=== PATIENT | male | born 1980 | race Caucasian/White ===

== ENCOUNTER 2025-01-11 13:27 | Observation (INO) | payer OTHER ==
--- OUTSIDE RECORDS SUMMARY | 2025-01-11 13:30 | XMS REPORT | Continuity of Care Document ---
Author Name Unknown Address [address] [facility] [address] [place] [address] [facility] Address [address] [facility] [address] [place] [address] Care Team Providers Care Dextrine Mixer Name Role Phone PCP, PATIENT DOES NOT HAVE A Primary Care Physic meme Unavailable YAEL SANTAMARIA Attending Clinician Unavail able YAEL SANTAMARIA Attending Clinician Unavail able YAEL SANTAMARIA Admitting Clinician Unavail able Payers Payer Name Policy Type Policy Number Effective Date Expirati on Date Source [place] [id number] 00:00:00 Allergies, Adverse Reactions, Alerts Allergy Name Allergy Type Status Severity Reaction(s) Onset Date Inactive Date Treating Clinician Comments Source NO KNOWN ALLERGIE S Drug Class Active [facility] Encounters Start Date/Time End Date/Time Encounter Type Admission Type Attending Clinicians Care Facility Care Department Encounter ID Source 2024-12-19 18:44:00 2024-12-20 01:31:00 Emergency X YAEL SANTAMARIA [facility] ERT [id number] [facility]
[2025-01-11] MEDS ORDERED: LORazepam 2 MG/ML VIAL ONE (13:51)
[2025-01-11] MEDS ORDERED: NA CHLORIDE 0.9% 1,000 ML ONE ×3 (13:51→21:21)
[2025-01-11] MEDS ORDERED: NA CHLORIDE 0.9% 50 ML ONE ×2 (13:51→17:56)
[2025-01-11] MEDS ORDERED: METOCLOPRAMIDE 10 MG/2mL INJ ONE (13:51)
[2025-01-11 14:03] LABS: Absolute Basophils 0.1 K/uL (0-0.5); Absolute Monocytes 0.3 K/uL (0.1-1.3); Absolute Neutrophil 11.6 K/uL (1.8-8.0); Basophils % 0.5 % (0-1.3); Eosinophils % 0.1 % (0-4.4); Hematocrit 47.5 % (39.6-49.0); Hemoglobin 16.7 g/dL (13.6-17.9); MCH 30.5 pg (27.0-35.0); MCHC 35.2 g/dL (32.0-36.0); MCV 86.7 fL (80-100); MPV 9.1 fL (7.6-11.3); Monocytes % 2.5 % (3.3-12.3); Neutrophils % 88.9 % (41.7-73.7); Nucleated Red Blood Cells % 0.1 % (0-0); Platelets 286 thou/uL (152-406); RBC Red Blood Cell Count 5.47 M/uL (4.33-5.43); Red Cell Distribution Width 12.9 % (12.1-15.2)
[2025-01-11] MEDS ORDERED: LIDOCAINE VISCOUS 2% 10ML ORAL SOLN ONE (14:03)
[2025-01-11] MEDS ORDERED: PANTOPRAZOLE 40 MG INJ ONE (14:03)
[2025-01-11] MEDS ORDERED: MAGNES/ALUMIN/SIMET 30ML UCUP ONE (14:03)
[2025-01-11 14:08] LABS: PT Prothrombin Time 14.8 SECONDS (10-13.0); Protime INR 1.32
[2025-01-11 14:55] LABS: Albumin 3.9 g/dL (3.4-5.0); Albumin/Globulin Ratio 0.7 (1.1-1.8); Anion Gap 18.3 mEq/L (5.0-15.0); Bilirubin Direct 0.2 mg/dL (0-0.2); Bilirubin Indirect, Calculated 0.4 mg/dL (0.2-0.8); Bilirubin Total 0.6 mg/dL (0.2-1.0); Globulin 5.4 g/dL (2.3-3.5); Magnesium 1.2 mg/dL (1.6-2.4); Potassium 4.3 mEq/L (3.5-5.1); Protein, Total 9.3 g/dL (6.4-8.2); Troponin High Sensitivity 11.6 pg/mL (<58.9)
--- NOTE | 2025-01-11 15:23 | RAD REPORT ---
EXAMINATION: ONE VIEW CHEST XR CLINICAL INDICATION: Male, 44 years old.,vomiting TECHNIQUE: Frontal chest projection is submitted. Examination is limited by patient positioning and t echnique. COMPARISON: No prior exam. FINDINGS: The lungs are grossly clear although suboptimal inspiratory effort somewhat limits evaluation. No pn eumothorax or sizable effusion. The heart is normal in size. Mediastinal contours are unremarkable. IMPRESSION: No acute intrathoracic abnormalities.
[2025-01-11] MEDS ORDERED: Magnesium Sulfate 2gm IVPB 2 G/50 ML BAG IV ONE (16:15)
--- NOTE | 2025-01-11 17:14 | RAD REPORT ---
EXAMINATION: CT Abdomen Pelvis Wo Contrast CLINICAL INDICATION: Male, 44 years old. Abd pain;Nausea / vomiting TECHNIQUE: CT abdomen and pelvis was performed, without IV contrast, as per department protocol. Axia l, sagittal and coronal reconstructions were obtained. One or more of the following dose reduction techniques were used: Automated exposure control, adjustment of the mA and kV according to the patien t size, and iterative reconstruction. Unless otherwise specified, incidental findings do not require dedicated imaging follow-up. COMPARISON: No prior exam. FINDINGS: The lack of intravenous contrast limits the sensitivity of this exam for evaluation of solid visceral organs, vascular structures, and retroperitoneum. LOWER CHEST: Patchy bilateral airspace opacities, largest is pleural-based in the left upper lobe jordan suring 4.5 cm, and largest on the right is present in the right middle lobe along the minor fissure measuring 3.9 cm. Most of the smaller opacities are subsolid in appearance. LIVER: Normal in size and contour. Diffuse parenchymal hypoattenuation suggesting steatosis. No focal lesion. BILIARY SYSTEM: No suspicious post abnormalities. SPLEEN: Normal size. No focal lesion. PANCREAS: No mass, ductal dilation, or tonio-pancreatic fluid. ADRENALS: Normal; no mass. KIDNEYS AND URETERS: Normal size and contour. No hydronephrosis. Nonobstructing calculi largest measu ring 6 mm at the left superior pole and 5 mm at the right lower pole URINARY BLADDER: Normal contour. GASTROINTESTINAL TRACT: No evidence of bowel obstruction, significant free fluid, free air or abscess . APPENDIX: Normal appendix. LYMPH NODES: No lymphadenopathy. MUSCULOSKELETAL: No acute or suspicious osseous abnormality. ADDITIONAL FINDINGS: None. IMPRESSION: Bilateral airspace opacities as above, could reflect multifocal pneumonia. Short-term CT chest evalua tion in one month or following resolution of any acute findings is recommended to ensure absence of underlying suspicious nodules. Bilateral nonobstructing renal calculi, largest measuring 6 mm on the left. Diffuse hepatic steatosis.
[2025-01-11 17:34] LABS: Platelet Estimate ADEQ; White Blood Cell Scan OK (OK)
[2025-01-11 17:35] LABS: Anisocytosis 1+; Blood Morphology Comment NOTED (NOT SEEN); Poikilocytosis 1+
[2025-01-11] MEDS ORDERED: NA CHLORIDE 0.9% 250 ML ONE (17:56)
[2025-01-11] MEDS ORDERED: HYDROMORPHONE HCL 0.5 MG/0.5 ML INJ ONE (17:56)
[2025-01-11] MEDS ORDERED: AZITHROMYCIN 500 MG INJ IVPB ONE (17:56)
[2025-01-11] MEDS ORDERED: PROMETHAZINE INJ 25 MG/ML AMP ONE (17:56)
[2025-01-11] MEDS ORDERED: CEFTRIAXONE 1000 MG/VIAL ONE (17:56)
[2025-01-11 18:02] LABS: Specific Gravity 1.026 (1.005-1.030); Sqamous Epithelial None Seen /HPF (None Seen); Urine Bacteria <20 /HPF (<20); Urine Bilirubin NEGATIVE (Negative); Urine Blood Negative (Negative); Urine Clarity Clear (Clear); Urine Color Yellow (Yellow); Urine Culture Reflex Order NOT NEEDED; Urine Glucose NEGATIVE (Negative); Urine Ketones 2+ (Negative); Urine Micro Reflex YN NO BILL MICROSCOPIC; Urine Mucus Slight /HPF (None Seen); Urine Nitrite NEGATIVE (Negative); Urine Protein 1+ (Negative); Urine RBC <5 /HPF (None Seen); Urine Urobilinogen Normal (Normal); Urine WBC <5 /HPF (<5); Urine pH 7.5 (5.0-7.0)
[2025-01-11 18:07] LABS: Barbiturates NEGATIVE (NEGATIVE); Benzodiazepines NEGATIVE (NEGATIVE); Cocaine NEGATIVE (NEGATIVE); METHAMPHETAM NEGATIVE (NEGATIVE); Methadone NEGATIVE (NEGATIVE); Opiates POSITIVE (NEGATIVE); Phencyclidine NEGATIVE (NEGATIVE); THC Cannibis POSITIVE (NEGATIVE)
--- NOTE | 2025-01-11 18:28 | EDPHYS ---
Physician Documentation [facility] Name: Kaden Turcios Age: 44 yrs Sex: Male : 1980 Arrival Date: 01/11/2025 Time: 13:27 Bed 2 Private MD: ED Physician Beni Patrick HPI: 01/11 13:45 This 44 yrs old Male presents to ER via Ambulatory with complaints of Vomiting. cp 13:45 The patient presents to the emergency department with nausea, with "dry heaves", cp vomiting, that is continuous, abdominal pain, of the mid abdomen, loose stools. Onset: The symptoms/episode began/occurred this morning. Possible causes: recent change in pain pump medication from Dilaudid to Fentanyl. Associated signs and symptoms: Pertinent positives: vomiting blood, Pertinent negatives: constipation, fever. Historical: - Allergies: 13:37 Morphine; iw - PMHx: 13:38 Diabetes mellitus; Chronic back pain; iw 13:39 hernia; iw - PSHx: 13:39 back; knee; iw - Immunization history:: Adult Immunizations not up to date. - Infectious Disease History:: Denies. - Social history:: Smoking status: Patient denies any tobacco usage or history of. Patient/guardian denies using alcohol, IV drugs. ROS: 13:50 Constitutional: Positive for poor PO intake, Negative for body aches, chills, fever, cp 13:50 Cardiovascular: Negative for chest pain, palpitations, cp 13:50 Respiratory: Negative for cough, shortness of breath, wheezing, 13:50 Abdomen/GI: Positive for abdominal pain, nausea and vomiting, loose stools, 13:50 Eyes: Negative for injury, pain, redness, and discharge, cp 13:50 Back: Negative for pain at rest, pain with movement, 13:50 Neuro: Negative for altered mental status, headache, 13:50 All other systems are negative, cp Exam: 13:55 Constitutional: The patient appears in no acute distress, alert, awake, cp non-diaphoretic, non-toxic, well developed, well nourished, uncomfortable, 13:55 Head/Face: Normocephalic, atraumatic. cp 13:55 Eyes: Periorbital structures: appear normal, Conjunctiva: normal, no exudate, no injection, Sclera: no appreciated abnormality, Lids and lashes: appear normal, bilaterally, 13:55 ENT: External ear(s): are unremarkable, Nose: is normal, Mouth: Lips: moist, Oral mucosa: moist, Posterior pharynx: Airway: no evidence of obstruction, patent, 13:55 Chest/axilla: Inspection: normal, 13:55 Cardiovascular: Rate: tachycardic, Rhythm: regular, 13:55 Respiratory: the patient does not display signs of respiratory distress, Respirations: labored breathing, is not present, intercostal retractions, are absent, Breath sounds: are clear throughout, no decreased breath sounds, no stridor, no wheezing, 13:55 Abdomen/GI: Inspection: Bowel sounds: active, all quadrants, Palpation: soft, in all quadrants, severe abdominal tenderness, in all quadrants, Hernia: noted in the paraumbilical area, incarceration, is not appreciated, tenderness, that is severe, 13:55 Back: CVA tenderness, is absent, 13:55 Neuro: Orientation: to person, place \\T\\ time. Mentation: is normal, 14:27 ECG was reviewed by the Attending Physician. Vital Signs: 13:39 BP 135 / 108; Pulse 140; Resp 22; Pulse Ox 100% on R/A; Weight 100.7 kg; Height 6 ft. 0 iw in. ; Pain 8/10; 14:32 BP 95 / 57; Pulse 96; Resp 18; Pulse Ox 97% on R/A; ph 15:22 BP 110 / 69; Pulse 88; Resp 17; Pulse Ox 98% ; cm10 17:00 BP 111 / 72; Pulse 93; Resp 18; Pulse Ox 95% on R/A; ph 19:02 BP 108 / 64; Pulse 94; Resp 15; Pulse Ox 94% on R/A; cm10 19:30 BP 109 / 61; Pulse 104; Resp 15; Pulse Ox 94% on R/A; cm10 20:51 BP 130 / 74; Pulse 104; Resp 18; Temp 99.4(O); Pulse Ox 98% ; cm10 13:39 Body Mass Index 30.11 (100.70 kg, 182.88 cm) iw 13:39 Pain Scale: Adult iw MDM: 13:38 Medical Screening Exam initiated cp 18:15 Data reviewed: vital signs, nurses notes, lab test result(s), EKG, radiologic studies, cp CT scan, plain films, and as a result, I will admit patient. 18:15 Differential diagnosis: gastritis, pancreatitis, viral gastroenteritis, cp gastroenteritis, dehydration, incarcerated hernia. Management of patient was discussed with the following: Hospitalist: SR Noonan will admit after discussion. Independent interpretation of the following test(s) in the Emergency Department EKG: See my EKG interpretation above. Care significantly affected by the following chronic conditions: Diabetes. Counseling: I had a detailed discussion with the patient and/or guardian regarding the historical points, exam findings, and any diagnostic results supporting the discharge/admit diagnosis, lab results, radiology results. Response to treatment: the patient's symptoms have mildly improved after treatment. 01/11 13:42 Order name: Basic Metabolic Panel; Complete Time: 14:57 cp 01/11 14:57 Interpretation: Normal except: ANION GAP 18.3; GLUC 230; CRE 1.73; GFR 49; CA 10.2. cp 01/11 13:42 Order name: CBC with Diff; Complete Time: 17:39 cp 01/11 14:22 Interpretation: Normal except: WBC 13.00; RBC 5.47; MARYLU% 88.9; LYM% 8.0; MN% 2.5; NEUT cp A 11.6. 01/11 13:42 Order name: LFT's; Complete Time: 14:57 cp 01/11 14:58 Interpretation: Normal except: AST 41; ALK 160; TP 9.3; GLOB 5.4; A/G 0.7. cp 01/11 13:42 Order name: Magnesium; Complete Time: 14:57 cp 01/11 14:58 Interpretation: Abnormal: MG 1.2. cp 01/11 13:42 Order name: PT-INR; Complete Time: 14:22 cp 01/11 13:42 Order name: Troponin HS; Complete Time: 14:57 cp 01/11 13:42 Order name: Lipase; Complete Time: 14:57 cp 01/11 13:42 Order name: UDS; Complete Time: 18:08 cp 01/11 13:42 Order name: Urinalysis W/Microscopic; Complete Time: 18:08 cp 01/11 17:35 Order name: CBC Smear Scan; Complete Time: 17:39 EDMS 01/11 19:02 Order name: Magnesium EDMS 01/11 19:02 Order name: Phosphorus EDMS 01/11 19:02 Order name: Basic Metabolic Panel EDMS 01/11 19:02 Order name: Basic Metabolic Panel EDMS 01/11 19:02 Order name: CBC with Automated Diff EDMS 01/11 19:02 Order name: CBC with Automated Diff EDMS 01/11 19:02 Order name: Lipid Profile EDMS 01/11 19:02 Order name: Lipid Profile EDMS 01/11 13:42 Order name: XRAY Chest (1 view); Complete Time: 15:40 cp 01/11 14:59 Order name: CT Abd/Pelvis - Without Contrast; Complete Time: 17:16 cp 01/11 17:17 Interpretation: Report reviewed. cp 01/11 13:42 Order name: Cardiac monitoring; Complete Time: 14:31 cp 01/11 13:42 Order name: EKG - Nurse/Tech; Complete Time: 14:26 cp 01/11 13:42 Order name: IV Saline Lock; Complete Time: 14:31 cp 01/11 13:42 Order name: Labs collected and sent; Complete Time: 14:31 cp 01/11 13:42 Order name: O2 Per Protocol; Complete Time: 14:31 cp 01/11 13:42 Order name: O2 Sat Monitoring; Complete Time: 14:31 cp EC:27 Rate is 97 beats/min. Rhythm is regular. PA interval is normal. QRS interval is normal. cp QT interval is normal. T waves are Inverted in leads aVL, aVR. Interpreted by me. Reviewed by me. Administered Medications: 13:59 Drug: NS 0.9% IV 1000 ml IV at 1000 ml once; to be given as a bolus over 60 minutes ph Route: IV; Rate: 1000 ml; Site: right forearm; 14:59 Follow up: Response: No adverse reaction; IV Status: Completed infusion; IV Intake: cm10 1000ml 14:00 Drug: metoCLOPramide IVP 10 mg IVP once; over 1 to 2 minutes Route: IVP; Site: right forearm; 15:19 Follow up: Response: No adverse reaction cm10 14:00 Drug: Ativan IVP 1 mg IVP once Route: IVP; Site: right forearm; 15:20 Follow up: Response: No adverse reaction cm10 14:00 Drug: Pantoprazole IVP 40 mg IVP once Route: IVP; Site: right forearm; ph 15:20 Follow up: Response: No adverse reaction cm10 14:22 Drug: GI Cocktail without - (Maalox PO 30 ml, Lidocaine Mucous Membrane 2 % 15 ph ml) PO once Route: PO; 15:20 Follow up: Response: No adverse reaction cm10 15:20 Drug: NS 0.9% IV 1000 ml IV at 1000 ml once; to be given as a bolus over 60 minutes cm10 Route: IV; Rate: 1000 ml; Site: right forearm; 17:00 Follow up: Response: No adverse reaction; IV Status: Completed infusion; IV Intake: ph 1000ml 16:59 Drug: Magnesium Sulfate IVPB 2 grams IVPB once over 1 hrs Route: IVPB; Infused Over: 1 ph hrs; Site: right forearm; 17:41 Follow up: Response: No adverse reaction; IV Status: Completed infusion; IV Intake: cm10 100ml 18:12 Drug: HYDROmorphone IVP 0.5 mg IVP once Route: IVP; Site: right forearm; cm10 19:03 Follow up: Response: No adverse reaction cm10 18:12 Drug: Promethazine IM 12.5 mg IM once Route: IM; Site: right ventrogluteal; cm10 19:03 Follow up: Response: No adverse reaction cm10 18:12 Drug: Rocephin IV 1 grams IV at calculated rate once; Given slow IV push per pharmacy cm10 instructions Route: IV; Rate: calculated rate; Site: right forearm; 19:03 Follow up: Response: No adverse reaction; IV Status: Completed infusion; IV Intake: [id number] 19:10 Drug: Zithromax IVPB 500 mg IVPB once over 1 hrs; mix in 250 mL NS Route: IVPB; Infused cm10 Over: 1 hrs; Site: right forearm; 20:10 Follow up: Response: No adverse reaction; IV Status: Completed infusion; IV Intake: cm10 250ml Disposition Summary: 01/11/25 18:28 Hospitalization Ordered Notes: Hospitalization Status: Observation cp Provider: Prince andreina Noonan Location: Telemetry/MedSurg (observation) cp Condition: Stable cp Problem: new cp Symptoms: have improved cp Bed/Room Type: Standard cp Room Assignment: 429(01/11/25 20:47) rv1 Diagnosis - Nausea with vomiting, unspecified cp - Hypomagnesemia cp - Pneumonia in diseases classified elsewhere cp Forms: - Medication Reconciliation Form cp - SBAR form cp - Leadership Thank You Letter cp Signatures: Dispatcher [employer] EDLinda Macario, RN RN Jennifer Fishman RN RN Beni Scott PA PA cp Maxine Aparicio rv1 Orin Boston RN RN cm10 Corrections: (The following items were deleted from the chart) 13:42 13:42 BASIC METABOLIC PANEL+C.LAB.BRZ ordered. EDMS EDMS 13:42 13:42 CBC+H.LAB.BRZ ordered. EDMS EDMS 13:42 13:42 HEPATIC FUNCTION+C.LAB.BRZ ordered. EDMS EDMS 13:42 13:42 MAGNESIUM+C.LAB.BRZ ordered. EDMS EDMS 13:42 13:42 PROTIME (+INR)+COAG.LAB.BRZ ordered. EDMS EDMS 13:42 13:42 Troponin High Sensitivity+C.LAB.BRZ ordered. EDMS EDMS 13:42 13:42 LIPASE+C.LAB.BRZ ordered. EDMS EDMS 13:42 13:42 URINE DRUG SCREEN+UC.LAB.BRZ ordered. EDMS EDMS 13:42 13:42 Urinalysis W/Microscopic+U.LAB.BRZ ordered. EDMS EDMS 13:42 13:42 Chest Single View+RAD.RAD.BRZ ordered. EDMS EDMS 14:23 14:23 Abdomen Pelvis W Con+CT.RAD.BRZ ordered. EDMS EDMS 15:00 15:00 Abdomen Pelvis Wo Con+CT.RAD.BRZ ordered. EDMS EDMS 20:47 18:28 cp rv1
--- NOTE | 2025-01-11 18:28 | ER ---
Nurse's Notes [facility] Name: Kaden Turcios Age: 44 yrs Sex: Male : 1980 Arrival Date: 01/11/2025 Time: 13:27 Bed 2 Private MD: Diagnosis: Nausea with vomiting, unspecified;Hypomagnesemia;Pneumonia in diseases classified elsewhere Presentation: 01/11 13:36 Chief complaint: Patient states: vomiting since 0130 in the morning, felt bad last iw night . burning pain , has a fentanyl in pain pump , they changed him from Dilaudid to fentanyl yesterday , he has chronic back pain. Coronavirus screen: At this time, the client does not indicate any symptoms associated with coronavirus-19. Ebola Screen: No symptoms or risks identified at this time. Initial Sepsis Screen: Does the patient meet any 2 criteria? HR > 90 bpm. Does the patient have a suspected source of infection? No. Patient's initial sepsis screen is negative. Risk Assessment: Do you want to hurt yourself or someone else?. Onset of symptoms was January 11, 2025. 13:36 Method Of Arrival: Ambulatory iw 13:36 Acuity: JOHN 3 iw 13:39 Acuity: JOHN 2 iw Historical: - Allergies: 13:37 Morphine; iw - PMHx: 13:38 Diabetes mellitus; Chronic back pain; iw 13:39 hernia; iw - PSHx: 13:39 back; knee; iw - Immunization history:: Adult Immunizations not up to date. - Infectious Disease History:: Denies. - Social history:: Smoking status: Patient denies any tobacco usage or history of. Patient/guardian denies using alcohol, IV drugs. Screenin:24 [facility] ED Fall Risk Assessment (Adult) History of falling in the last 3 months, cm10 including since admission No falls in past 3 months (0 pts) Confusion or Disorientation No (0 pts) Intoxicated or Sedated No (0 pts) Impaired Gait No (0 pts) Mobility Assist Device Used No (0 pt) Altered Elimination No (0 pt) Score/Fall Risk Level 0 - 2 = Low Risk Oriented to surroundings, Maintained a safe environment, Hourly rounding (assess needs \T\ fall precautionary measures) done. Abuse screen: Denies threats or abuse. Denies injuries from another. Nutritional screening: No deficits noted. Tuberculosis screening: No symptoms or risk factors identified. Assessment: 13:50 General: Appears in no apparent distress. uncomfortable, Behavior is calm, cooperative. cm10 Pain: Complains of pain in abdomen. Neuro: No deficits noted. Level of Consciousness is awake, alert, obeys commands, Oriented to person, place, time, situation, Appropriate for age. Respiratory: No deficits noted. Airway is patent Respiratory effort is even, unlabored, Respiratory pattern is regular, symmetrical. GI: Abdomen is flat, Reports nausea, vomiting. 15:24 Reassessment: Patient appears in no apparent distress at this time. Patient and/or cm10 family updated on plan of care and expected duration. Pain level reassessed. Patient is alert, oriented x 3, equal unlabored respirations, skin warm/dry/pink. Patient states feeling better. Patient states symptoms have improved. 16:59 Reassessment: Patient appears in no apparent distress at this time. Patient and/or ph family updated on plan of care and expected duration. Pain level reassessed. Pt drowsy but awakens easily Patient states feeling better. Patient states symptoms have improved. 17:25 Reassessment: PT COMPLAINING OF ABDOMINAL PAIN. PROVIDER MADE AWARE. cm10 19:02 Reassessment: Patient appears in no apparent distress at this time. Patient and/or cm10 family updated on plan of care and expected duration. Pain level reassessed. Patient is alert, oriented x 3, equal unlabored respirations, skin warm/dry/pink. 20:53 Reassessment: Patient appears in no apparent distress at this time. Patient and/or cm10 family updated on plan of care and expected duration. Pain level reassessed. Patient is alert, oriented x 3, equal unlabored respirations, skin warm/dry/pink. Vital Signs: 13:39 BP 135 / 108; Pulse 140; Resp 22; Pulse Ox 100% on R/A; Weight 100.7 kg; Height 6 ft. 0 iw in. ; Pain 8/10; 14:32 BP 95 / 57; Pulse 96; Resp 18; Pulse Ox 97% on R/A; ph 15:22 BP 110 / 69; Pulse 88; Resp 17; Pulse Ox 98% ; cm10 17:00 BP 111 / 72; Pulse 93; Resp 18; Pulse Ox 95% on R/A; ph 19:02 BP 108 / 64; Pulse 94; Resp 15; Pulse Ox 94% on R/A; cm10 19:30 BP 109 / 61; Pulse 104; Resp 15; Pulse Ox 94% on R/A; cm10 20:51 BP 130 / 74; Pulse 104; Resp 18; Temp 99.4(O); Pulse Ox 98% ; cm10 13:39 Body Mass Index 30.11 (100.70 kg, 182.88 cm) iw 13:39 Pain Scale: Adult iw Vitals: 14:32 Cardiac Rhythm Assessment Sinus rhythm. ph ED Course: 13:30 Patient arrived in ED. al6 13:31 Beni Villar PA is PHCP. cp 13:31 Beni Patrick MD is Attending Physician. cp 13:37 Triage completed. iw 13:44 Orin Boston, RN is Primary Nurse. cm10 13:44 Arm band placed on Patient placed in an exam room, on a stretcher. ll1 13:56 Patient has correct armband on for positive identification. Bed in low position. Call cm10 light in reach. Side rails up X2. Client placed on continuous cardiac and pulse oximetry monitoring. NIBP monitoring applied. phototypesetting equipment monitor on. 13:56 Initial lab(s) drawn, by me, sent to lab. Inserted saline lock: 18 gauge in right cm10 forearm, using aseptic technique. Blood collected. Flushed with 10 mL NS. 14:06 XRAY Chest (1 view) In Process Unspecified. EDMS 14:26 EKG done, by ED staff, reviewed by Beni ANDREWS. kb4 15:20 CT Abd/Pelvis - Without Contrast In Process Unspecified. EDMS 18:27 Prince Noonan MD is Hospitalizing Provider. cp 21:02 Report faxed at 2057, confirmed received at 2058 by jenny. cm10 21:02 Provided Education on: Need for admit. cm10 21:02 No provider procedures requiring assistance completed. Patient admitted, IV remains in cm10 place. Administered Medications: 13:59 Drug: NS 0.9% IV 1000 ml IV at 1000 ml once; to be given as a bolus over 60 minutes ph Route: IV; Rate: 1000 ml; Site: right forearm; 14:59 Follow up: Response: No adverse reaction; IV Status: Completed infusion; IV Intake: cm10 1000ml 14:00 Drug: metoCLOPramide IVP 10 mg IVP once; over 1 to 2 minutes Route: IVP; Site: right ph forearm; 15:19 Follow up: Response: No adverse reaction cm10 14:00 Drug: Ativan IVP 1 mg IVP once Route: IVP; Site: right forearm; ph 15:20 Follow up: Response: No adverse reaction cm10 14:00 Drug: Pantoprazole IVP 40 mg IVP once Route: IVP; Site: right forearm; ph 15:20 Follow up: Response: No adverse reaction cm10 14:22 Drug: GI Cocktail without - (Maalox PO 30 ml, Lidocaine Mucous Membrane 2 % 15 ph ml) PO once Route: PO; 15:20 Follow up: Response: No adverse reaction cm10 15:20 Drug: NS 0.9% IV 1000 ml IV at 1000 ml once; to be given as a bolus over 60 minutes cm10 Route: IV; Rate: 1000 ml; Site: right forearm; 17:00 Follow up: Response: No adverse reaction; IV Status: Completed infusion; IV Intake: ph 1000ml 16:59 Drug: Magnesium Sulfate IVPB 2 grams IVPB once over 1 hrs Route: IVPB; Infused Over: 1 ph hrs; Site: right forearm; 17:41 Follow up: Response: No adverse reaction; IV Status: Completed infusion; IV Intake: cm10 100ml 18:12 Drug: HYDROmorphone IVP 0.5 mg IVP once Route: IVP; Site: right forearm; cm10 19:03 Follow up: Response: No adverse reaction cm10 18:12 Drug: Promethazine IM 12.5 mg IM once Route: IM; Site: right ventrogluteal; cm10 19:03 Follow up: Response: No adverse reaction cm10 18:12 Drug: Rocephin IV 1 grams IV at calculated rate once; Given slow IV push per pharmacy cm10 instructions Route: IV; Rate: calculated rate; Site: right forearm; 19:03 Follow up: Response: No adverse reaction; IV Status: Completed infusion; IV Intake: [id number] 19:10 Drug: Zithromax IVPB 500 mg IVPB once over 1 hrs; mix in 250 mL NS Route: IVPB; Infused cm10 Over: 1 hrs; Site: right forearm; 20:10 Follow up: Response: No adverse reaction; IV Status: Completed infusion; IV Intake: cm10 250ml Medication: 21:03 VIS not applicable for this client. cm10 Intake: 14:59 IV: 1000ml; Total: 1000ml. cm10 17:00 IV: 1000ml; Total: 2000ml. ph 17:41 IV: 100ml; Total: 2100ml. cm10 19:03 IV: 50ml; Total: 2150ml. cm10 20:10 IV: 250ml; Total: 2400ml. cm10 Outcome: 18:28 Decision to Hospitalize by Provider. cp 21:02 Admitted to Tele accompanied by tech, via wheelchair, room 429, cm10 21:02 Condition: good 21:02 Instructed on the need for admit, 22:04 Patient left the ED. cm10 Signatures: Dispatcher [employer] EDMS Linda Abbott RN RN iw Jennifer Mendoza RN RN ph Beni Villar PA PA cp Marcus Madrid RN RN ll1 Orin Boston RN RN cm10 Clara Hernandez al6 Yessi Blake kb4 Corrections: (The following items were deleted from the chart) 13:38 13:36 Chief complaint: Patient states: vomiting since 0130 in the morning, felt bad iw last night . burning pain iw 13:40 13:39 BP 135 / 108; Pulse 140bpm; Resp 22bpm; Pulse Ox 100% RA; iw iw
[2025-01-11] MEDS ORDERED: ALBUTEROL 2.5 MG/3 ML NEB SOL NEB PRN (18:57)
[2025-01-11] MEDS ORDERED: IPRATROPIUM BROM 0.5MG/2.5ML NEB PRN (18:57)
[2025-01-11] MEDS ORDERED: ACETAMINOPHEN 500 MG TAB PO PRN (18:57)
[2025-01-11] MEDS ORDERED: ONDANSETRON 4 MG/2 ML VIAL IV PRN (18:57)
[2025-01-11] MEDS ORDERED: SODIUM CHLORIDE 0.9% 10ML INJ IV PRN (19:04)
--- NOTE | 2025-01-11 19:05 | P.HP ---
Certification for Inpatient Patient admitted to: Observation With expected LOS: <2 Midnights Practitioner: I am a practitioner with admitting privileges, knowledge of patient current condition, hospital course, and medical plan of care. Services: Services provided to patient in accordance with Admission requirements found in Title 42 Section 412.3 of the Code of Federal Regulations Patient History Date of Service: 01/11/25 Reason for admission: INTRACTABLE N/V, asp PNA History of Present Illness: Patient is a 44-year-old male with a past medical history of chronic pain, currently on fentanyl pump. He presented to the ER complaining of intractable nausea and vomiting. Other associated symptoms include abdominal pain. He has a periumbilical hernia. Workup in the ER revealed WBC of 13,000. CT abdomen and pelvis did not reveal any obstruction but captured multifocal opacities concerning for pneumonia. He also has DARCIE with creatinine 1.73. Baseline unknown. Patient is being admitted for volume repletion and symptomatic control. He has also been started on antibiotics. Physical Examination - Physical Exam General: Acute distress HEENT: Atraumatic, Normocephalic Cardiovascular: No edema, Normal pulses, Regular rate/rhythm, Normal S1 S2 Gastrointestinal: Soft and benign, Other (Hernia noted) Neurological: Normal speech - Studies Laboratory Data (last 24 hrs) 01/11/25 01/11/25 01/11/25 13:55 13:55 13:55 WBC 13.00 H Hgb 16.7 Hct 47.5 Plt Count 286 PT 14.8 H INR 1.32 Sodium 137 Potassium 4.3 BUN 14 Creatinine 1.73 H Glucose 230 H Magnesium 1.2 L Total Bilirubin 0.6 AST 41 H ALT 54 Alkaline Phosphatase 160 H Lipase 7 L Assessment and Plan - Problems (Diagnosis) (1) Intractable nausea and vomiting Current Visit: Yes Status: Acute (2) Multifocal pneumonia Current Visit: Yes Status: Acute (3) Chronic pain Current Visit: Yes Status: Acute - Plan Assessment This is a 44-year-old male with chronic pain currently on a fentanyl pain pump. He is being admitted after he presented with intractable nausea and vomiting. Patient has evidence of DARCIE with a creatinine of 1.73. Additional imaging including a CT abdomen and pelvis which revealed multifocal opacities. Patient has a WBC of 13,000 Tractable nausea and vomiting Multifocal pneumonia, possibly aspiration events as well Chronic pain Plan: Will admit under observation with telemetry Volume repletion with normal saline If creatinine improves tomorrow Obtain a CT chest with contrast for better understanding of multifocal opacities In the meantime, antibiotic coverage Will also go ahead and consult pulmonary for the multifocal opacities Symptomatic control of nausea and vomiting: Zofran, PPI and GI cocktail if needed Patient is full code - Advance Directives Does patient have a Living Will: No Does patient have a Durable POA for Healthcare: No
[2025-01-11] MEDS ORDERED: VANCOMYCIN 1.25 GM in NA CHLORIDE 0.9% 250 ML IVPB SCH (21:00)
[2025-01-11] MEDS: HYDROMORPHONE HCL 1 MG/ML INJ IV ONE (21:18)
[2025-01-11] MEDS ORDERED: HYDROMORPHONE HCL 1 MG/ML INJ ONE (21:21)
[2025-01-11] MEDS: NA CHLORIDE 0.9% 1,000 ML IV SCH (21:29)
[2025-01-11] MEDS: PANTOPRAZOLE 40 MG INJ IVP SCH (22:37)
[2025-01-11] MEDS: Meropenem 1,000 MG in NA CHLORIDE 0.9% 100 ML IV SCH (22:37)
[2025-01-11 23:14] VITALS: BMI 30.5
[2025-01-11] MEDS: VANCOMYCIN 2.5 GM in NA CHLORIDE 0.9% 500 ML IVPB ONE (23:58)
[2025-01-11] MEDS: AMITRIPTYLINE 50 MG TAB PO SCH (23:59)
[2025-01-11] MEDS: HEPARIN 5000 UNIT/ML 1 ML VIAL SQ SCH (23:59)
[2025-01-11] MEDS: TIZANIDINE 4 MG TABLET PO SCH (23:59)
[2025-01-12] MEDS: CLONIDINE HCL 0.3 MG TAB PO SCH ×2 (02:30→09:50)
[2025-01-12] MEDS: HYDROMORPHONE HCL 1 MG/ML INJ IV PRN (03:11)
[2025-01-12 07:45] LABS: Absolute Basophils 0.1 K/uL (0-0.5); Absolute Lymphocytes (CBC) 1.3 K/uL (0.7-4.9); Absolute Monocytes 0.8 K/uL (0.1-1.3); Absolute Neutrophil 7.6 K/uL (1.8-8.0); Basophils % 0.6 % (0-1.3); Eosinophils % 0.1 % (0-4.4); Hematocrit 39.8 % (39.6-49.0); Hemoglobin 13.7 g/dL (13.6-17.9); Lymphocytes % 13.4 % (15.3-44.8); MCH 30.2 pg (27.0-35.0); MCHC 34.4 g/dL (32.0-36.0); MCV 87.5 fL (80-100); MPV 8.8 fL (7.6-11.3); Monocytes % 7.8 % (3.3-12.3); Neutrophils % 78.1 % (41.7-73.7); Platelets 188 thou/uL (152-406); RBC Red Blood Cell Count 4.55 M/uL (4.33-5.43); Red Cell Distribution Width 12.9 % (12.1-15.2)
[2025-01-12 08:12] LABS: Anion Gap 11.3 mEq/L (5.0-15.0); Potassium 4.3 mEq/L (3.5-5.1)
[2025-01-12] MEDS ORDERED: TIZANIDINE 4 MG TABLET PO SCH (09:00)
[2025-01-12 09:18] LABS: Phosphorus 2.1 mg/dL (2.5-4.9)
[2025-01-12] MEDS ORDERED: VANCOMYCIN 1.75 GM in NA CHLORIDE 0.9% 500 ML IVPB SCH (12:00)
[2025-01-12 12:06] VITALS: TEMP 98.2
[2025-01-12 14:14] VITALS: O2SAT 96
--- NOTE | 2025-01-12 14:17 | EKG ---
Test Date: 2025-01-11 Test Time: 14:22:48 Financial Director: FRANCIS MEASUREMENT RESULTS: Intervals: Rate: 97 IA: 142 QRSD: 86 QT: 386 QTc: 490 [place]: P: 57 IA: 142 QRS: 35 T: 64 INTERPRETIVE STATEMENTS: Normal sinus rhythm Prolonged QT Abnormal ECG No previous ECG available for comparison Electronically Signed On 01-12-25 14:13:13 CDT by Krystian Serna
[2025-01-12 16:02] VITALS: BP 168/98
[2025-01-12] MEDS ORDERED: HYDROCODONE/APAP 5/325 MG TAB PO PRN (16:56)
[2025-01-12] MEDS: VANCOMYCIN 1.75 GM in NA CHLORIDE 0.9% 500 ML IVPB SCH (17:40)
--- NOTE | 2025-01-12 17:51 | P.DS ---
Admission Date: 01/11/25 Discharge Date: 01/12/25 Disposition: ROUTINE DISCHARGE Discharge Condition: GOOD Reason for Admission: INTRACTABLE N/V, asp PNA Brief History of Present Illness: Patient is a 44-year-old male with a past medical history of chronic pain, currently on fentanyl pump. He presented to the ER complaining of intractable nausea and vomiting. Other associated symptoms include abdominal pain. He has a periumbilical hernia. Workup in the ER revealed WBC of 13,000. CT abdomen and pelvis did not reveal any obstruction but captured multifocal opacities concerning for pneumonia. He also has DARCIE with creatinine 1.73. Baseline unknown. Patient is being admitted for volume repletion and symptomatic control. He has also been started on antibiotics Hospital Course: Patient is a 44-year-old male with a past medical history of chronic pain, currently on fentanyl pump who presented to the emergency room with nausea and vomiting, and abdominal pain. CT of abdomen/pelvis with contrast showed evidence of multifocal pneumonia. Initiated on broad-spectrum antibiotics. The following day, patient was clinically improved, vital stable, O2 sats in the 90s on room air. Leukocytosis resolved. Pain resolved. Tolerating regular diet. Patient was then discharged on oral antibiotics Augmentin x 5 days. Vital Signs/Physical Exam: Temp Pulse Resp BP Pulse Ox 98.2 F 91 H 16 168/98 H 99 01/12/25 16:00 01/12/25 16:00 01/12/25 16:00 01/12/25 16:00 01/12/25 16:00 Laboratory Data at Discharge: WBC 9.80 thou/uL (4.3-10.9) 01/12/25 07:34 Hgb 13.7 g/dL (13.6-17.9) D 01/12/25 07:34 Hct 39.8 % (39.6-49.0) 01/12/25 07:34 Plt Count 188 thou/uL (152-406) D 01/12/25 07:34 PT 14.8 SECONDS (10-13.0) H 01/11/25 13:55 INR 1.32 01/11/25 13:55 Sodium 142 mEq/L (136-145) D 01/12/25 07:34 Potassium 4.3 mEq/L (3.5-5.1) 01/12/25 07:34 BUN 17 mg/dL (7-18) 01/12/25 07:34 Creatinine 1.12 mg/dL (0.70-1.30) 01/12/25 07:34 Glucose 159 mg/dL (74-106) H 01/12/25 07:34 Phosphorus 2.1 mg/dL (2.5-4.9) L 01/12/25 07:34 Magnesium 2.0 mg/dL (1.6-2.4) 01/12/25 07:34 Total Bilirubin 0.6 mg/dL (0.2-1.0) 01/11/25 13:55 AST 41 U/L (15-37) H 01/11/25 13:55 ALT 54 U/L (16-61) 01/11/25 13:55 Alkaline Phosphatase 160 U/L (45-117) H 01/11/25 13:55 Triglycerides 143 mg/dL (<150) 01/12/25 07:34 Cholesterol 145 mg/dL (<200) 01/12/25 07:34 HDL Cholesterol 30 mg/dL (40-60) L 01/12/25 07:34 Cholesterol/HDL Ratio 4.83 01/12/25 07:34 Lipase 7 U/L (13-75) L 01/11/25 13:55 Home Medications: Amitriptyline [Elavil*] 50 mg PO BEDTIME 01/11/25 Tizanidine [Zanaflex*] 4 mg PO TID 01/11/25 cloNIDine HCL [Catapres*] 0.3 mg PO DIRECTED 01/11/25 Amox/Clavulanate [Augmentin 875-125 Tab] 875 mg PO BID 5 Days #10 tab 01/12/25 New Medications: Amox/Clavulanate [Augmentin 875-125 Tab] 875 mg PO BID 5 Days #10 tab Physician Discharge Instructions: Outpatient follow-up with PCP within 1 to 2 weeks postdischarge Followup: Matt Payton MD [Primary Care Provider] -
[2025-01-12] MEDS ORDERED: AMITRIPTYLINE 25 MG TAB PO SCH (21:00)
== END 2025-01-12 18:19 | disposition home or self-care (01) ==
LOC: ER 13:27 → ERHOLD 18:57 → 4TH 21:00
PROVIDERS: ADMIT Internal Medicine; ATTEND Internal Medicine
DX: J18.9 Pneumonia, unspecified organism (principal); R11.2 Nausea with vomiting, unspecified; G89.29 Other chronic pain; R10.9 Unspecified abdominal pain
CPT/HCPCS: 96365; 96367; 96361; 93005; 85025 ×2; 81001; 80048 ×2; 36415 ×2; 83735 ×2; 84100; 85610; 80061; 80076; 84484; 83690; 80307; 74176; 71045; 94760; 96375; 96372; 99285; J2550; J1644 ×3; J3475; J2765; J2470 ×3; J3370 ×2; J2185 ×2; J1171 ×6; J7050; J7040 ×2; J7030 ×4; J0696; G0378

== ENCOUNTER 2025-01-20 12:14 | Emergency (ER) | payer OTHER ==
--- OUTSIDE RECORDS SUMMARY | 2025-01-20 12:16 | XMS REPORT | Continuity of Care Document ---
Author Name Unknown Address [address] [place] [address] [address] [place] [address] [facility] Address [address] [place] [address] Care Team Providers Care Orchard Manager Name Role Phone PCP, PATIENT DOES NOT HAVE A Primary Care Physic meme YAEL Casillas Attending Clinician Unavail able YEAL SANTAMARIA Attending Clinician Unavail able YAEL SANTAMARIA Admitting Clinician Unavail able Payers Payer Name Policy Type Policy Number Effective Date Expirati on Date Source [place] [id number] 00:00:00 Allergies, Adverse Reactions, Alerts Allergy Name Allergy Type Status Severity Reaction(s) Onset Date Inactive Date Treating Clinician Comments Source NO KNOWN ALLERGIE S Drug Class Active [facility] Encounters Start Date/Time End Date/Time Encounter Type Admission Type Attending Clinicians Care Facility Care Department Encounter ID Source 2024-12-19 18:44:00 2024-12-20 01:31:00 Emergency X YAEL SANTAMARIA [facility] ERT [id number] [facility]
[2025-01-20 14:28] LABS: Influenza A Ag Negative; Influenza B Ag Negative; SARS-CoV-2 Antigen Rapid Res Negative (Negative)
--- NOTE | 2025-01-20 14:36 | ER ---
Nurse's Notes [facility] Name: Kaden Turcios Age: 44 yrs Sex: Male : 1980 Arrival Date: 01/20/2025 Time: 12:14 Bed DIS5 Private MD: Diagnosis: Viral infection, unspecified;Acute upper respiratory infection, unspecified Presentation: 01/20 12:34 Chief complaint: sent to ED by health department following measles exposure + hb symptomatic, pt c/o itchy rash and sore throat that started 4 days ago. Coronavirus screen: At this time, the client does not indicate any symptoms associated with coronavirus-19. Ebola Screen: No symptoms or risks identified at this time. Initial Sepsis Screen: Does the patient meet any 2 criteria? No. Patient's initial sepsis screen is negative. Does the patient have a suspected source of infection? No. Patient's initial sepsis screen is negative. Risk Assessment: Do you want to hurt yourself or someone else? Patient reports no desire to harm self or others. Onset of symptoms was January 16, 2025. 12:34 Method Of Arrival: Ambulatory hb 12:34 Acuity: JOHN 4 hb Historical: - Allergies: 12:35 Morphine; hb - PMHx: 12:35 chronic back pain; diabetes mellitus; Hernia; hb - PSHx: 12:35 back; knee; hb - Immunization history:: Adult Immunizations up to date. - Infectious Disease History:: Denies. - Social history:: Smoking status: Patient denies any tobacco usage or history of. Screenin:45 [facility] ED Fall Risk Assessment (Adult) History of falling in the last 3 months, hb including since admission No falls in past 3 months (0 pts) Confusion or Disorientation No (0 pts) Intoxicated or Sedated No (0 pts) Impaired Gait No (0 pts) Mobility Assist Device Used No (0 pt) Altered Elimination No (0 pt) Score/Fall Risk Level 0 - 2 = Low Risk Oriented to surroundings, Maintained a safe environment, Educated pt \T\ family on fall prevention, incl call for assistance when getting out of bed. Abuse screen: Denies threats or abuse. Denies injuries from another. Nutritional screening: No deficits noted. Tuberculosis screening: No symptoms or risk factors identified. Assessment: 10:59 Reassessment: PT HERE WITH SPOUSE BEFORE CHECKING IN, PLACED IN REVERSE ISOLATION ROOM hb 28 AT [address] LATER ADVISED BY HEALTH DEPT AND INFECTION CONTROL NURSE SUNNY DE LUNA THAT WE WOULD TEST FOR MEASLES IF REQUESTED BY PT. PT WOULD LIKE TO BE TESTED, DR GARCIA NOTIFIED. 12:35 General: Appears in no apparent distress. Behavior is calm, cooperative. Pain: Denies hb pain. Neuro: Level of Consciousness is awake, alert, obeys commands, Oriented to person, place, time, situation. Cardiovascular: Patient's skin is warm and dry. Respiratory: Respiratory effort is even, unlabored, Respiratory pattern is regular, symmetrical. GI: No signs and/or symptoms were reported involving the gastrointestinal system. : No signs and/or symptoms were reported regarding the genitourinary system. EENT: Reports sore throat. Derm: itchy rash on trunk and groin. 13:45 Reassessment: Patient appears in no apparent distress at this time. Patient and/or hb family updated on plan of care and expected duration. Pain level reassessed. Patient is alert, oriented x 3, equal unlabored respirations, skin warm/dry/pink. 14:40 Reassessment: Patient appears in no apparent distress at this time. Patient and/or hb family updated on plan of care and expected duration. Pain level reassessed. Patient is alert, oriented x 3, equal unlabored respirations, skin warm/dry/pink. Vital Signs: 12:30 Resp 16; hb ED Course: 12:16 Patient arrived in ED. hb 12:16 Beni Garcia MD is Attending Physician. lois 12:30 Patient has correct armband on for positive identification. Bed in low position. Call hb light in reach. Provided Education on: TESTS, RESULT TIMES. 12:35 Triage completed. hb 12:35 Arm band placed on. hb 13:40 Cintia Vogt, RN is Primary Nurse. hb 13:41 Group A Streptococcus Rapid Sent. hb 13:41 COVID-19 Ag + Flu A+B Ag Sent. hb 13:41 Misc. Lab Test Sent. hb 14:40 No provider procedures requiring assistance completed. Patient did not have IV access hb during this emergency room visit. Administered Medications: No medications were administered Medication: 13:48 VIS not applicable for this client. hb Outcome: 14:35 Discharge ordered by . lois 14:40 Discharged to home ambulatory, with significant other, hb 14:40 Condition: stable 14:40 Discharge instructions given to patient, Instructed on discharge instructions, follow up and referral plans. medication usage, QUARANTINE UNTIL NEGATIVE RESULT FROM HEALTH DEPARTMENT Demonstrated understanding of instructions, follow-up care, medications, 14:58 Patient left the ED. hb Signatures: Beni Garcia MD MD cha Baxter, Heather, RN RN hb Corrections: (The following items were deleted from the chart) 13:44 12:34 Chief complaint: notified of measles exposure + symtomatic, c/o itchy rash hb and sore throat that started 4 days ago, wants to be tested. hb
--- NOTE | 2025-01-20 14:36 | EDPHYS ---
Physician Documentation [facility] Name: Kaden Turcios Age: 44 yrs Sex: Male : 1980 Arrival Date: 01/20/2025 Time: 12:14 Bed DIS5 Private MD: ED Physician Beni Patrick HPI: 01/20 12:47 This 44 yrs old Male presents to ER via Ambulatory with complaints of Measles lois Exposure. 12:47 The patient or guardian reports cough, that is intermittent. Onset: The lois symptoms/episode began/occurred 5 day(s) ago. Modifying factors: The symptoms are alleviated by nothing. the symptoms are aggravated by nothing. possible measles. Associated signs and symptoms: Pertinent positives: sore throat. Severity of symptoms: At their worst the symptoms were mild in the emergency department the symptoms are unchanged. The patient has experienced similar episodes in the past, a few times. Historical: - Allergies: 12:35 Morphine; hb - PMHx: 12:35 chronic back pain; diabetes mellitus; Hernia; hb - PSHx: 12:35 back; knee; hb - Immunization history:: Adult Immunizations up to date. - Infectious Disease History:: Denies. - Social history:: Smoking status: Patient denies any tobacco usage or history of. ROS: 12:49 Constitutional: Negative for fever, chills, and weight loss, Eyes: Negative for injury, lois pain, redness, and discharge, ENT: Negative for injury, pain, and discharge, Neck: Negative for injury, pain, and swelling, Cardiovascular: Negative for chest pain, palpitations, and edema, Abdomen/GI: Negative for abdominal pain, nausea, vomiting, diarrhea, and constipation, Back: Negative for injury and pain, : Negative for injury, bleeding, discharge, and swelling, MS/Extremity: Negative for injury and deformity, Skin: Negative for injury, rash, and discoloration, Neuro: Negative for headache, weakness, numbness, tingling, and seizure, Psych: Negative for depression, anxiety, suicide ideation, homicidal ideation, and hallucinations, Allergy/Immunology: Negative for hives, rash, and allergies, Endocrine: Negative for neck swelling, polydipsia, polyuria, polyphagia, and marked weight changes, Hematologic/Lymphatic: Negative for swollen nodes, abnormal bleeding, and unusual bruising, 12:49 Respiratory: Positive for cough, with no reported sputum, Exam: 12:49 Constitutional: This is a well developed, well nourished patient who is awake, alert, lois and in no acute distress. Head/Face: Normocephalic, atraumatic. Eyes: Pupils equal round and reactive to light, extra-ocular motions intact. Lids and lashes normal. Conjunctiva and sclera are non-icteric and not injected. Cornea within normal limits. Periorbital areas with no swelling, redness, or edema. ENT: Nares patent. No nasal discharge, no septal abnormalities noted. Tympanic membranes are normal and external auditory canals are clear. Oropharynx with no redness, swelling, or masses, exudates, or evidence of obstruction, uvula midline. Mucous membranes moist. Neck: Trachea midline, no thyromegaly or masses palpated, and no cervical lymphadenopathy. Supple, full range of motion without nuchal rigidity, or vertebral point tenderness. No Meningismus. Chest/axilla: Normal chest wall appearance and motion. Nontender with no deformity. No lesions are appreciated. Cardiovascular: Regular rate and rhythm with a normal S1 and S2. No gallops, murmurs, or rubs. Normal PMI, no JVD. No pulse deficits. Respiratory: Lungs have equal breath sounds bilaterally, clear to auscultation and percussion. No rales, rhonchi or wheezes noted. No increased work of breathing, no retractions or nasal flaring. Abdomen/GI: Soft, non-tender, with normal bowel sounds. No distension or tympany. No guarding or rebound. No evidence of tenderness throughout. Back: No spinal tenderness. No costovertebral tenderness. Full range of motion. Skin: Warm, dry with normal turgor. Normal color with no rashes, no lesions, and no evidence of cellulitis. MS/ Extremity: Pulses equal, no cyanosis. Neurovascular intact. Full, normal range of motion., bilateral aka Neuro: Awake and alert, GCS 15, oriented to person, place, time, and situation. Cranial nerves II-XII grossly intact. Motor strength 5/5 in all extremities. Sensory grossly intact. Cerebellar exam normal. Normal gait. Psych: Awake, alert, with orientation to person, place and time. Behavior, mood, and affect are within normal limits. Vital Signs: 12:30 Resp 16; hb MDM: 12:16 Medical Screening Exam initiated [facility] 12:51 Differential diagnosis: obstructed airway, tracheal injury, bronchitis, flu, URI. lois Antibiotic administration: Not indicated. Differential Diagnosis altered mental status, sepsis, flu. Data reviewed: vital signs, nurses notes, lab test result(s). Consideration of Admission/Observation Escalation of care including admission/observation considered. I considered the following discharge prescriptions or medication management in the emergency department Medications were administered in the Emergency Department. See MAR. Test considered but Not performed: Labs: no cbc, no cmp. Care significantly affected by the following chronic conditions: Diabetes, cbp, dm. 01/20 12:17 Order name: Misc. Lab Test [facility] 01/20 12:23 Order name: COVID-19 Ag + Flu A+B Ag; Complete Time: 14:35 [facility] 01/20 12:23 Order name: Group A Streptococcus Rapid; Complete Time: 14:35 [facility] 01/20 14:18 Order name: Throat Culture EDMS Administered Medications: No medications were administered Disposition Summary: 01/20/25 14:35 Discharge Ordered Notes: Location: Home [facility] Problem: new [facility] Symptoms: have improved [facility] Condition: Stable [facility] Diagnosis - Viral infection, unspecified lois - Acute upper respiratory infection, unspecified lois Followup: [facility] - With: Private Physician - When: 2 - 3 days - Reason: Recheck today's complaints, Continuance of care, Re-evaluation by your physician Discharge Instructions: - Discharge Summary Sheet lois - Viral Respiratory Infection lois - Cool Mist Vaporizer lois - Upper Respiratory Infection, Adult, [facility] - Cough, Adult [facility] Forms: - Medication Reconciliation Form [facility] - Antibiotic Education lois - Prescription Opioid Use [facility] - Patient Portal Instructions [facility] - Leadership Thank You Letter [facility] Signatures: Dispatcher [employer] EDMS Beni Patrick MD MD cha Baxter, Heather, RN RN Corrections: (The following items were deleted from the chart) 12:17 12:17 Miscellaneous Lab Test+R.LAB.BRZ ordered. EDMS EDMS 12:23 12:23 COVID-19 Ag + Flu A+B Ag+I.LAB.BRZ ordered. EDMS EDMS 12:23 12:23 Group A Streptococcus Rapid Sc+I.LAB.BRZ ordered. EDMS EDMS
== END 2025-01-20 14:58 | disposition home or self-care (01) ==
LOC: ER 12:14
DX: B34.9 Viral infection, unspecified (principal); J06.9 Acute upper respiratory infection, unspecified; R05.9 Cough, unspecified; Z11.52 Encounter for screening for COVID-19
CPT/HCPCS: 36415; 87070; 87428; 99283

== ENCOUNTER 2025-01-31 06:07 | Day surgery (SDC) | payer OTHER ==
[2025-01-31] MEDS ORDERED: LIDOCAINE 1% MPF 5 ML VIAL ONE (06:45)
[2025-01-31] MEDS ORDERED: KETOROLAC 30 MG/ML INJ ONE (06:45)
[2025-01-31] MEDS ORDERED: ONDANSETRON 4 MG/2 ML VIAL ONE (06:45)
[2025-01-31] MEDS ORDERED: FENTANYL CITR 100 MCG/2 ML ONE (06:46)
[2025-01-31] MEDS ORDERED: MIDAZOLAM HCL 2 MG/2 ML INJ ONE (06:46)
[2025-01-31] MEDS ORDERED: ROCURONIUM 50 MG/5 ML VIAL IV ONE (06:46)
[2025-01-31] MEDS ORDERED: propofoL 200 MG/20 ML VIAL IV ONE (06:46)
[2025-01-31] MEDS: NA CHLORIDE 0.9% 1,000 ML ONE (06:50)
[2025-01-31] MEDS ORDERED: dexAMETHasone 10 MG/ML VIAL ONE (08:10)
[2025-01-31] MEDS: CEFAZOLIN SODIUM 1 GM/VIAL ONE (08:20)
[2025-01-31] MEDS ORDERED: GLYCOPYRROLATE 0.2 MG/ML SYR ONE ×3 (08:43→08:46)
[2025-01-31] MEDS ORDERED: NEOSTIGMINE 1 MG/ML -10 ML VIAL ONE (08:45)
--- NOTE | 2025-01-31 09:10 | P.BOP ---
Preoperative diagnosis: supraumbilical tender ventral hernia Postoperative diagnosis: same Primary procedure: Diagnostic laparoscopy, Secondary procedure: Laparoscopic assisted repair of tender supraumbilical ventral hernia Other procedure(s): 3 cm Estimated blood loss: <10cc Specimen: sac and content Findings: supraumbilical ventral hernia Anesthesia: General Complications: None Transferred to: Recovery Room Condition: Good
[2025-01-31] MEDS: HYDROMORPHONE HCL 1 MG/ML INJ ONE (09:27)
[2025-01-31 11:34] VITALS: BP 113/69; TEMP 97.3; O2SAT 97
--- NOTE | 2025-01-31 20:54 | OP ---
Date of Procedure: 01/31/2025 Surgeon: Everardo Boston MD Preoperative Diagnoses: Tender supraumbilical ventral hernia. Diastasis recti. Postoperative Diagnoses: Tender supraumbilical ventral hernia. Diastasis recti. Procedure: Diagnostic laparoscopy, laparoscopic assist repair of tender supraumbilical ventral herni a about 3 cm. Estimated Blood Loss: Less than 10 cc. Specimens: The hernia sac and content. Findings: Supraumbilical ventral hernia, also diastasis recti. Anesthesia: General plus local. Indications: This is a case of a 44-year-old patient, who came to us with a tender lump in the supra umbilical region. The patient also was explained that even though we find a hernia in that region, s ome of that process he is describing is diastasis recti. I do not feel a hernia at that moment, but once we went there to repair the supraumbilical ventral hernia, then I will put the camera in the epi gastric region and see if there is any other hernia present. If there is something there, then we ma y have to repair that. He understands the plan, understands that if this is diastasis recti, which i s not going to be repaired during this admission, he may have to consult with a Plastic surgeon for o ther options. He understood, he was clear, and he signed a consent. All the questions were answered to his satisfaction. Description Of The Procedure: The patient was brought to the operating room, placed in supine positi on. Anesthesia was induced without complication. Abdominal area was prepped and draped in sterile f ashion. A time-out was called. After that, we made an incision in the supraumbilical ventral region . That is the area we feel the bigger is the lump. Once we were in that, we noticed that hernia pre sent is a fascia defect. We opened the hernia sac. We noticed omentum incarcerated in that area wit h also part of the falciform ligament coming through. So we were able to clean the fascial edges and removed the excess tissue, reduced the omentum. At that moment, I proceeded to place Vicryl #1 insi de of the fascia. Salomon trocar was carefully introduced through that same area and pneumoperitoneum was obtained. I placed 5 mm trocars left and right side of the abdomen. This allowed me to do the diagnostic lap and see if there is any other defect present. We went to the midline incision. We no ticed a diastasis recti, but after exam in the area, and even moving the falciform ligament to the si de, we cannot see any fascia defects. We noticed the liver to be not smooth and pictures were taken for him to bring it to his therapist asst. Stomach felt soft and compressible. Ascending, trans verse, descending colon soft and compressible with no extraluminal masses seen. At that moment, I pr oceeded then to some adhesions that he has intraperitoneally were removed with the help of the scisso rs connected to Bovie cauterizer. Once we had the fascia nice and flat, and we delineated the fascia , we noticed that we can close this primarily. So we had removed the Salomon trocar, removed the scop e under direct visualization. Deflated the pneumoperitoneum, then closed the fascia with #1 Vicryl m ultiple times in [id number] fashion. The area was irrigated. Then, after that, the subcutaneou s tissue was closed with 3-0 chromic and then the skin was approximated with laura. Sponge counts and instrument counts were correct. Patient tolerated the procedure well. Patient was sent to [facility] in stable condition. STACIA/RICKI Voice ID: [id number] Report ID: [id number]
--- NOTE | 2025-01-31 20:54 | DS ---
Date of Discharge: 01/31/2025 Diagnosis: Supraumbilical tender ventral hernia. Procedures: Diagnostic laparoscopy, laparoscopic assist repair of tender supraumbilical ventral melina ia. Condition: Stable. Disposition: Home. Activity: As tolerated. No heavy lifting. Discharge Instructions: Follow up in my office in 1 week. Call for appointment at [phone]. Keep a jaime dry for 48 hours, then may shower. STACIA/RICKI Voice ID: [id number] Report ID: [id number]
== END 2025-01-31 10:35 | disposition home or self-care (01) ==
LOC: OR 06:07
PROVIDERS: ATTEND Surgery
PROC: 0WQF4ZZ Repair Abdominal Wall, Percutaneous Endoscopic Approach (ICD-10-PCS; principal; 2025-01-31 07:30)
DX: K43.9 Ventral hernia without obstruction or gangrene (principal); M62.08 Separation of muscle (nontraumatic), other site
CPT/HCPCS: 82947 ×2; 88302; 49593; L0625; J2704; J2710; J2003; J2250; J3010; J1100; J1171; J2405; J7030; J0690

== ENCOUNTER 2025-02-08 17:36 | Emergency (ER) | payer OTHER ==
--- OUTSIDE RECORDS SUMMARY | 2025-02-08 17:39 | XMS REPORT | Continuity of Care Document ---
Author Name Unknown Address [address] [place] [address] [address] [place] [address] [facility] Address [address] [facility]. [address] [place] [address] Care Team Providers Care Team Sports Sales Associate Name Role Phone PCP, PATIENT DOES NOT HAVE A Primary Care Physic meme YAEL Casillas Attending Clinician Unavail able YAEL SANTAMARIA Attending Clinician Unavail able YAEL SANTAMARIA Admitting Clinician Unavail able Payers Payer Name Policy Type Policy Number Effective Date Expirati on Date Source [facility] PPO/POS [id number] 2024 00:00:00 [place] [id number] 00:00:00 Allergies, Adverse Reactions, Alerts Allergy Name Allergy Type Status Severity Reaction(s) Onset Date Inactive Date Treating Clinician Comments Source NO KNOWN ALLERGIE S Drug Class Active [facility] Encounters Start Date/Time End Date/Time Encounter Type Admission Type Attending Clinicians Care Facility Care Department Encounter ID Source 2024-12-19 18:44:00 2024-12-20 01:31:00 Emergency X YAEL SANTAMARIA [facility] ERT [id number] [facility]
[2025-02-08 20:12] LABS: Absolute Basophils 0.1 K/uL (0-0.5); Absolute Eosinophils 0.3 K/uL (0-0.5); Absolute Lymphocytes (CBC) 1.8 K/uL (0.7-4.9); Absolute Monocytes 0.6 K/uL (0.1-1.3); Absolute Neutrophil 5.4 K/uL (1.8-8.0); Eosinophils % 4.1 % (0-4.4); Hematocrit 42.8 % (39.6-49.0); Lymphocytes % 21.4 % (15.3-44.8); MCHC 35.1 g/dL (32.0-36.0); MCV 88.2 fL (80-100); MPV 9.7 fL (7.6-11.3); Monocytes % 7.8 % (3.3-12.3); Neutrophils % 65.7 % (41.7-73.7); Nucleated Red Blood Cells % 0.1 % (0-0); Platelets 165 thou/uL (152-406); RBC Red Blood Cell Count 4.85 M/uL (4.33-5.43); Red Cell Distribution Width 13.7 % (12.1-15.2)
[2025-02-08 20:19] LABS: PT Prothrombin Time 12.7 SECONDS (10-13.0); PTT, Activated Partial Thromb 31.6 SECONDS (27.2-37.4); Protime INR 1.12
[2025-02-08 20:26] LABS: Albumin 3.9 g/dL (3.4-5.0); Albumin/Globulin Ratio 0.9 (1.1-1.8); Anion Gap 11.2 mEq/L (5.0-15.0); Bilirubin Total 0.5 mg/dL (0.2-1.0); Globulin 4.3 g/dL (2.3-3.5); Potassium 4.2 mEq/L (3.5-5.1); Protein, Total 8.2 g/dL (6.4-8.2)
[2025-02-08] MEDS ORDERED: HYDROMORPHONE HCL 0.5 MG/0.5 ML INJ ONE (20:27)
[2025-02-08] MEDS ORDERED: ONDANSETRON 4 MG/2 ML VIAL ONE (20:27)
--- NOTE | 2025-02-08 21:00 | RAD REPORT ---
EXAMINATION: CT Abdomen Pelvis W Contrast CLINICAL INDICATION: Male, 44 years old. post umbilical hernia repair;Abd pain TECHNIQUE: CT abdomen and pelvis was performed, after the administration of IV contrast, as per depar tment protocol. Axial, sagittal and coronal reconstructions were obtained. One or more of the following dose reduction techniques were used: Automated exposure control, adjustment of the mA and k V according to patient size, and iterative reconstruction. Unless otherwise specified, incidental findings do not require dedicated imaging follow-up. COMPARISON: 01/11/2025. FINDINGS: Motion artifact somewhat limits evaluation particularly in the mid abdomen. LOWER CHEST: Partial improvement of multiple nodular bibasilar opacities, with more flattened appeara nce of the right middle lobe and anterior right basal nodules, and significant interval decrease in size of the left basal and lingular nodules. The most sizable right lower lobe subpleural nodule now measures 1.3 cm. LIVER: Normal in size and contour. No focal lesion. BILIARY SYSTEM: Status post cholecystectomy. SPLEEN: Normal size. No focal lesion. PANCREAS: No mass, ductal dilation, or tonio-pancreatic fluid. ADRENALS: Normal; no mass. KIDNEYS: Normal size and contour. No hydronephrosis. Nonobstructing left upper pole 5 mm calculus. URINARY BLADDER: Unremarkable. GASTROINTESTINAL TRACT: No evidence of free air, significant intra-abdominal free fluid, bowel obstru ction or abscess. APPENDIX: Normal appendix. LYMPH NODES: No lymphadenopathy. MUSCULOSKELETAL: No acute or suspicious osseous abnormality. ADDITIONAL FINDINGS: Postsurgical changes of umbilical hernia repair. Skin defect at the level of the incision with some residual skin laura most inferiorly. No Appreciable fluid collections. No suspicious abnormalities deep to the transversalis fascia, with mild diastases recti again seen. IMPRESSION: Postsurgical changes of umbilical hernia repair, with no appreciable underlying fluid collections or deeper soft tissue tract. Nonobstructing 5 mm superior pole renal calculus. Marginal interval decrease in size of multiple bibasilar lung nodular opacities, suggesting improving infectious or inflammatory process.
--- NOTE | 2025-02-08 22:32 | ER ---
Nurse's Notes [facility] Name: Kaden Turcios Age: 44 yrs Sex: Male : 1980 Arrival Date: 02/08/2025 Time: 17:36 Bed 15 Private MD: Diagnosis: post surgical wound dehiscence Presentation: 02/08 17:54 Chief complaint: Patient states: hernia repair on Wednesday with Dr. Boston, they iw took the laura out yesterday , the incision opened up and stated draining today, has burning pain in his abdomen. Coronavirus screen: At this time, the client does not indicate any symptoms associated with coronavirus-19. Ebola Screen: No symptoms or risks identified at this time. Initial Sepsis Screen: Does the patient meet any 2 criteria? HR > 90 bpm. Does the patient have a suspected source of infection? No. Patient's initial sepsis screen is negative. Risk Assessment: Do you want to hurt yourself or someone else? Patient reports no desire to harm self or others. Onset of symptoms was February 08, 2025. 17:54 Method Of Arrival: Ambulatory iw 17:54 Acuity: JOHN 2 iw Triage Assessment: 23:07 General: Appears. jj7 Historical: - Allergies: 17:57 Morphine; iw 17:57 Toradol; iw 17:57 Ibuprofen; iw - PMHx: 17:57 diabetes mellitus; Gout; Hernia; herniated discs; Hypertensive disorder; Chronic pain; iw chronic back pain; - PSHx: 17:57 Cholecystectomy; back; knee; pain pump -- dilaudid; right knee; iw - Immunization history:: Adult Immunizations unknown. - Infectious Disease History:: Denies. Screenin:15 [facility] ED Fall Risk Assessment (Adult) History of falling in the last 3 months, jj7 including since admission No falls in past 3 months (0 pts) Confusion or Disorientation No (0 pts) Intoxicated or Sedated No (0 pts) Impaired Gait No (0 pts) Mobility Assist Device Used No (0 pt) Altered Elimination No (0 pt) Score/Fall Risk Level 0 - 2 = Low Risk Oriented to surroundings, Maintained a safe environment, Educated pt \T\ family on fall prevention, incl call for assistance when getting out of bed, Assessed \T\ reinforced patient's understanding of fall precautions. Abuse screen: Denies threats or abuse. Nutritional screening: No deficits noted. Tuberculosis screening: No symptoms or risk factors identified. Assessment: 18:48 Reassessment: Patient and/or family updated on plan of care and expected duration. Pain ll1 level reassessed. 19:15 Reassessment: ASSUMED CARE OF PT. PT LYING IN BED. NO DISTRESS NOTED. BP ELEVATED. jj7 Pain: Complains of pain in umbilical area Pain radiates to suprapubic area, right lower quadrant and left lower quadrant. GI: Abdomen is tender to palpation in umbilical area, suprapubic area, right lower quadrant and left lower quadrant Reports lower abdominal pain, Pain is 10 out of 10 on a pain scale. 20:58 Derm: Rash noted that is red, ERYTHEMATOUS PRURITIC RASH NOTE TO BILATERAL ARMS AND jj7 LEGS, WITH CONCENTRATED RASH TO INNER THIGHS. Vital Signs: 17:54 BP 150 / 113; Pulse 143; Resp 20; Temp 98.5; Pulse Ox 99% on R/A; Weight 100.24 kg; iw Height 6 ft. 0 in. ; Pain 10/10; 19:15 BP 172 / 110; Pulse 102; Resp 19; Pulse Ox 98% ; Pain 10/10; jj7 20:00 BP 170 / 117; Pulse 99; Resp 20; Pulse Ox 98% ; jj7 21:01 BP 142 / 94; Pulse 91; Resp 17; Pulse Ox 99% ; jj7 22:00 BP 156 / 94; Pulse 99; Resp 19; Pulse Ox 99% ; jj7 23:07 BP 150 / 90; Pulse 98; Resp 17; Temp 98.4; Pulse Ox 100% ; Pain 4/10; jj7 17:54 Body Mass Index 29.97 (100.24 kg, 182.88 cm) iw 17:54 Pain Scale: Adult iw 19:15 Pain Scale: Adult jj7 23:07 Pain Scale: Adult jj7 ED Course: 17:39 Patient arrived in ED. al6 17:42 Hedy Escalona PA-C is PHCP. sb4 17:42 Yessica Anders MD is Attending Physician. sb4 17:57 Triage completed. iw 17:58 Arm band placed on. iw 17:59 Hedy Escalona PA-C is PHCP. sb4 17:59 Yessica Anders MD is Attending Physician. sb4 18:48 Patient placed in an exam room, on a stretcher. ll1 19:02 Melissa Hadley, ANNAMARIE is Primary Nurse. jj7 19:15 Patient has correct armband on for positive identification. Bed in low position. Call jj7 light in reach. Adult w/ patient. Provided Education on: USE OF CALL ANGELES. Warm blanket given. 19:52 Inserted saline lock: 20 gauge in right forearm, using aseptic technique. Blood oe collected. Flushed with 10 mL NS. 19:58 Blood Culture Adult (2) Sent. oe 19:58 CBC with Diff Sent. oe 19:58 CMP Sent. oe 19:58 Lactate w/ 2H reflex if indic. Sent. oe 19:58 Protime (+inr) Sent. oe 19:58 Ptt, Activated Sent. oe 20:04 CT Abd/Pelvis - IV Contrast Only In Process Unspecified. EDMS 20:25 Blood Culture Adult (2) Sent. jj7 20:25 CMP Sent. jj7 20:25 Lactate w/ 2H reflex if indic. Sent. jj7 22:31 Everardo Boston MD is Referral Physician. sb4 23:07 No provider procedures requiring assistance completed. IV discontinued, intact, jj7 bleeding controlled, No redness/swelling at site. Pressure dressing applied. Administered Medications: 20:38 Drug: HYDROmorphone IVP 1 mg IVP once Route: IVP; Site: right forearm; jj7 21:02 Follow up: Response: Marked relief of symptoms; Pain is decreased jj7 21:02 Follow up: Response: Marked relief of symptoms; Nausea is decreased jj7 20:38 Drug: Ondansetron IVP 4 mg IVP once; over 2 minutes Route: IVP; Site: right forearm; jj7 21:03 Follow up: Response: Nausea is decreased jj7 23:00 Drug: HYDROmorphone IVP 0.5 mg IVP once Route: IVP; Site: right antecubital; jj7 23:05 Follow up: Response: Marked relief of symptoms jj7 Medication: 23:08 VIS not applicable for this client. jj7 Outcome: 22:31 Discharge ordered by . sb4 23:08 Discharged to home ambulatory, with significant other, jj7 23:08 Condition: improved 23:08 Discharge instructions given to patient, Instructed on discharge instructions, follow up and referral plans. wound care, Demonstrated understanding of instructions, follow-up care, wound care, 23:08 Patient left the ED. jj7 Signatures: Dispatcher [employer] EDLinda Macario, RN RN Judson Kendrick Lynsay, RN RN ll1 Melissa Hadley RN RN jj7 Hedy Escalona PAEverett PAEverett sb4 Clara Hernandez Corrections: (The following items were deleted from the chart) 21:01 19:15 GI: Abdomen is tender to palpation in umbilical area, suprapubic area, right jj7 lower quadrant and left lower quadrant Reports lower abdominal pain, Pain is 10 out of 10 on a pain scale. jj7
--- NOTE | 2025-02-08 22:32 | EDPHYS ---
Physician Documentation [facility] Name: Kaden Turcios Age: 44 yrs Sex: Male : 1980 Arrival Date: 02/08/2025 Time: 17:36 Bed 15 Private MD: ED Physician Yessica Anders HPI: 02/08 18:13 This 44 yrs old Male presents to ER via Ambulatory with complaints of Wound Check, sb4 Abdominal Pain. 18:46 Patient underwent laparoscopic repair of supraumbilical ventral hernia a little over 1 sb4 week ago. States he had his laura removed yesterday but that one of the incision sites dehisced today and he started experiencing a lot of abdominal pain/burning. No nausea, vomiting, diarrhea. Historical: - Allergies: 17:57 Morphine; iw 17:57 Toradol; iw 17:57 Ibuprofen; iw - PMHx: 17:57 diabetes mellitus; Gout; Hernia; herniated discs; Hypertensive disorder; Chronic pain; iw chronic back pain; - PSHx: 17:57 Cholecystectomy; back; knee; pain pump -- dilaudid; right knee; iw - Immunization history:: Adult Immunizations unknown. - Infectious Disease History:: Denies. ROS: 18:46 Constitutional: Negative for fever, chills, and weight loss, sb4 18:46 Abdomen/GI: Positive for abdominal pain, Per HPI, 18:46 All other systems are negative, Exam: 18:46 Head/Face: Normocephalic, atraumatic. Eyes: Extra-ocular motions intact. Periorbital sb4 areas with no swelling, redness, or edema. ENT: Mucous membranes moist. Respiratory: No increased work of breathing, no retractions or nasal flaring. Abdomen/GI: Soft, non-tender, no distension. 18:46 Constitutional: The patient appears alert, awake, anxious, in obvious pain, uncomfortable, 18:46 Cardiovascular: Rate: tachycardic, Rhythm: regular, 18:46 Abdomen/GI: 18:46 Skin: Wound recheck: Supraumbilical laparoscopic incision is gaping open, but no discharge, swelling, or erythema, Vital Signs: 17:54 BP 150 / 113; Pulse 143; Resp 20; Temp 98.5; Pulse Ox 99% on R/A; Weight 100.24 kg; iw Height 6 ft. 0 in. ; Pain 10/10; 19:15 BP 172 / 110; Pulse 102; Resp 19; Pulse Ox 98% ; Pain 10/10; jj7 20:00 BP 170 / 117; Pulse 99; Resp 20; Pulse Ox 98% ; jj7 21:01 BP 142 / 94; Pulse 91; Resp 17; Pulse Ox 99% ; jj7 22:00 BP 156 / 94; Pulse 99; Resp 19; Pulse Ox 99% ; jj7 23:07 BP 150 / 90; Pulse 98; Resp 17; Temp 98.4; Pulse Ox 100% ; Pain 4/10; jj7 17:54 Body Mass Index 29.97 (100.24 kg, 182.88 cm) iw 17:54 Pain Scale: Adult iw 19:15 Pain Scale: Adult jj7 23:07 Pain Scale: Adult jj7 MDM: 17:49 Medical Screening Exam initiated sb4 23:34 Data reviewed: vital signs, nurses notes, lab test result(s), radiologic studies, I sb4 have discussed the patient's presentation/case with the attending Emergency Department Physician; and as a result, I will discharge patient. Management of patient was discussed with the following: Inventory Technician: Dr. Boston, recommends dressing the wound with triple antibiotic and gauze and follow-up with him in the office on Wednesday. Care significantly affected by the following chronic conditions: Diabetes, Hypertension. Counseling: I had a detailed discussion with the patient and/or guardian regarding the historical points, exam findings, and any diagnostic results supporting the discharge/admit diagnosis, the presence of at least one elevated blood pressure reading (>120/80) during this emergency department visit, lab results, radiology results, the need for outpatient follow up, a general surgeon, to return to the emergency department if symptoms worsen or persist or if there are any questions or concerns that arise at home. 02/08 18:07 Order name: Blood Culture Adult (2) 4 02/08 18:07 Order name: CBC with Diff; Complete Time: 20:15 sb4 02/08 18:07 Order name: CMP; Complete Time: 20:27 4 02/08 18:07 Order name: Lactate w/ 2H reflex if indic.; Complete Time: 20:44 4 02/08 18:07 Order name: Protime (+inr); Complete Time: 20:20 sb4 02/08 18:07 Order name: Ptt, Activated; Complete Time: 20:20 sb4 02/08 20:23 Order name: Glucose, Ancillary Testing; Complete Time: 20:23 EDMS 02/08 18:07 Order name: CT Abd/Pelvis - IV Contrast Only; Complete Time: 21:10 sb4 02/08 18:07 Order name: Accucheck; Complete Time: 20:25 sb4 02/08 18:07 Order name: Cardiac monitoring; Complete Time: 20:25 sb4 02/08 18:07 Order name: IV Saline Lock - Large Bore; Complete Time: 19:57 sb4 02/08 18:07 Order name: Labs collected and sent; Complete Time: 19:57 sb4 02/08 18:07 Order name: O2 Per Protocol; Complete Time: 20:26 sb4 02/08 18:07 Order name: O2 Sat Monitoring; Complete Time: 20:26 sb4 02/08 18:07 Order name: Vital Signs; Complete Time: 21:52 sb4 02/08 22:31 Order name: Misc. Order: abdominal binder; Complete Time: 23:05 sb4 Administered Medications: 20:38 Drug: HYDROmorphone IVP 1 mg IVP once Route: IVP; Site: right forearm; jj7 21:02 Follow up: Response: Marked relief of symptoms; Pain is decreased jj7 21:02 Follow up: Response: Marked relief of symptoms; Nausea is decreased jj7 20:38 Drug: Ondansetron IVP 4 mg IVP once; over 2 minutes Route: IVP; Site: right forearm; jj7 21:03 Follow up: Response: Nausea is decreased jj7 23:00 Drug: HYDROmorphone IVP 0.5 mg IVP once Route: IVP; Site: right antecubital; jj7 23:05 Follow up: Response: Marked relief of symptoms jj7 Disposition Summary: 02/08/25 22:31 Discharge Ordered Notes: Location: Home sb4 Problem: new sb4 Symptoms: have improved sb4 Condition: Stable sb4 Diagnosis - post surgical wound dehiscence sb4 Followup: sb4 - With: Everardo Boston MD - When: 2 - 3 days - Reason: Recheck today's complaints, Re-evaluation by your physician Discharge Instructions: - Discharge Summary Sheet sb4 - Nonsutured Laceration Care sb4 - Wound Care, Adult sb4 Forms: - Patient Portal Instructions sb4 - Leadership Thank You Letter sb4 Signatures: Dispatcher [employer] Linda Menendez, RN Melissa Hammond RN RN jj7 Hedy Escalona, LUIS SMITH sb4
[2025-02-08] MEDS ORDERED: HYDROMORPHONE HCL 2 MG/ML inj ONE (22:48)
[2025-02-08 23:49] VITALS: BP 150/90; TEMP 98.4; O2SAT 100
== END 2025-02-08 23:08 | disposition home or self-care (01) ==
LOC: ER 17:36
DX: T81.31XA Disruption of external operation (surgical) wound, not elsewhere classified, initial encounter (principal); Z98.890 Other specified postprocedural states; G89.29 Other chronic pain; Z97.8 Presence of other specified devices
CPT/HCPCS: 87040 ×2; 85025; 36415; 85610; 82565; 82947; 83605; 85730; 80053; 74177; 99284; J1171 ×2; J2405

== ENCOUNTER 2025-02-09 09:56 | Emergency (ER) | payer OTHER ==
--- OUTSIDE RECORDS SUMMARY | 2025-02-09 10:11 | XMS REPORT | Continuity of Care Document ---
Author Name Unknown Address [address] [place] [address] [address] [place] [address] [facility] Address [address] [facility]. [address] [place] [address] Care Team Providers Care Receptionist Airline Lounge Name Role Phone PCP, PATIENT DOES NOT HAVE A Primary Care Physic meme YAEL Casillas Attending Clinician Unavail able YAEL SANTAMARIA Attending Clinician Unavail able YAEL SANTAMARIA Admitting Clinician Unavail able Payers Payer Name Policy Type Policy Number Effective Date Expirati on Date Source [facility] PPO/POS [id number] 2024 00:00:00 [place] [id number] 00:00:00 Allergies, Adverse Reactions, Alerts Allergy Name Allergy Type Status Severity Reaction(s) Onset Date Inactive Date Treating Clinician Comments Source NO KNOWN ALLERGIE S Drug Class Active [facility] Encounters Start Date/Time End Date/Time Encounter Type Admission Type Attending Clinicians Care Facility Care Department Encounter ID Source 2024-12-19 18:44:00 2024-12-20 01:31:00 Emergency X YAEL SANTAMARIA [facility] ERT [id number] [facility]
[2025-02-09] MEDS ORDERED: MUPIROCIN 2% OINT 22GM TUBE TOP ONE (10:32)
--- NOTE | 2025-02-09 10:34 | ER ---
Nurse's Notes [facility] Name: Kaden Turcios Age: 44 yrs Sex: Male : 1980 Arrival Date: 02/09/2025 Time: 09:56 Bed 17 Private MD: Diagnosis: Wound dehiscence Presentation: 02/09 10:15 Chief complaint: Patient states: was seen here yesterday for abdominal dehiscence , iw wants the opening closed up because he cannot get in to see Dr. Boston until Wednesday. Coronavirus screen: At this time, the client does not indicate any symptoms associated with coronavirus-19. Ebola Screen: No symptoms or risks identified at this time. Initial Sepsis Screen: Does the patient meet any 2 criteria? HR > 90 bpm. Does the patient have a suspected source of infection? No. Patient's initial sepsis screen is negative. Risk Assessment: Do you want to hurt yourself or someone else? Patient reports no desire to harm self or others. Onset of symptoms was February 09, 2025. 10:15 Method Of Arrival: Ambulatory iw 10:15 Acuity: JOHN 3 iw Historical: - Allergies: 10:17 Morphine; iw 10:17 Toradol; iw 10:17 Ibuprofen; iw - PMHx: 10:17 Chronic pain; diabetes mellitus; Gout; Hernia; herniated discs; Hypertensive disorder; iw - PSHx: 10:17 Cholecystectomy; knee; pain pump -- dilaudid; right knee; back; iw - Immunization history:: Adult Immunizations up to date. - Infectious Disease History:: Denies. - Social history:: Smoking status: unknown. Screenin:26 [facility] ED Fall Risk Assessment (Adult) History of falling in the last 3 months, kc6 including since admission No falls in past 3 months (0 pts) Confusion or Disorientation No (0 pts) Intoxicated or Sedated No (0 pts) Impaired Gait No (0 pts) Mobility Assist Device Used No (0 pt) Altered Elimination No (0 pt) Score/Fall Risk Level 0 - 2 = Low Risk Oriented to surroundings, Maintained a safe environment. Abuse screen: Denies threats or abuse. Denies injuries from another. Nutritional screening: No deficits noted. Tuberculosis screening: No symptoms or risk factors identified. Assessment: 10:45 General: Appears in no apparent distress. comfortable, well groomed, well developed, kc6 Behavior is cooperative, anxious, Denies fever, chills. Pain: Denies pain. Neuro: Level of Consciousness is awake, alert, obeys commands, Oriented to person, place, time, situation, Appropriate for age. Cardiovascular: Capillary refill < 3 seconds. Respiratory: Airway is patent Trachea midline Respiratory effort is even, unlabored, Respiratory pattern is regular, symmetrical. GI: No signs and/or symptoms were reported involving the gastrointestinal system. : No signs and/or symptoms were reported regarding the genitourinary system. EENT: No signs and/or symptoms were reported regarding the EENT system. Derm: Skin is healthy with good turgor, Skin is pink, warm \T\ dry. Wound noted umbilical area Wound is open with serosanguineous drainage. no redness, swelling or foul odor noted at this time. pt denies any pain or discomfort. Musculoskeletal: No signs and/or symptoms reported regarding the musculoskeletal system. Circulation, motion, and sensation intact. Range of motion: intact in all extremities. Vital Signs: 10:15 BP 159 / 99; Pulse 131; Resp 19; Temp 98.7; Pulse Ox 98% on R/A; iw 10:25 Pulse 106; kc6 ED Course: 09:57 Patient arrived in ED. im 09:58 Aman Canseco DO is Attending Physician. ms3 10:09 Corinne Oliver, RN is Primary Nurse. kc6 10:17 Triage completed. iw 10:18 Arm band placed on. iw 10:25 Patient has correct armband on for positive identification. Bed in low position. Call kc6 light in reach. Side rails up X 1. Pulse ox on. NIBP on. Door closed. Noise minimized. Lights dimmed. Pillow given. Verbal reassurance given. 10:26 Patient maintains SpO2 saturation greater than 95% on room air. kc6 10:32 Everardo Boston MD is Referral Physician. ms3 10:44 Wound care: to dehiscence located on umbilical area was dressed with mupirocin, kc6 Xeroform gauze, no adherent pad and tape, Patient tolerated well. 10:47 No provider procedures requiring assistance completed. Patient did not have IV access kc6 during this emergency room visit. 10:48 Provided Education on: s/s of infection, wound care, f/u with Dr. Boston on Wednesday as kc6 scheduled.. Administered Medications: 10:44 Drug: Mupirocin Topical Ointment 2 % 1 application Topical once Route: Topical; Site: kc6 abdomen; 10:47 Follow up: Response: No adverse reaction kc6 Medication: 10:48 VIS not applicable for this client. kc6 Outcome: 10:33 Discharge ordered by MD. ms3 10:47 Discharged to home ambulatory, kc6 10:47 Condition: good 10:47 Discharge instructions given to patient, Instructed on discharge instructions, follow up and referral plans. medication usage, wound care, Demonstrated understanding of instructions, follow-up care, medications, wound care, Prescriptions given X 1, 10:48 Patient left the ED. kc6 Signatures: Linda Abbott RN RN iw Aman Canseco DO DO ms3 Corinne Oliver RN RN kc6 Mary Lou Hernández Corrections: (The following items were deleted from the chart) 10:18 10:17 PMHx: chronic back pain; [facility]
--- NOTE | 2025-02-09 10:34 | EDPHYS ---
Physician Documentation [facility] Name: Kaden Turcios Age: 44 yrs Sex: Male : 1980 Arrival Date: 02/09/2025 Time: 09:56 Bed 17 Private MD: ED Physician Aman Canseco HPI: 02/09 21:12 This 44 yrs old Male presents to ER via Ambulatory with complaints of Wound Check. ms3 21:12 44-year-old male with past medical history of chronic pain, diabetes, gout, hernia, ms3 hypertensive disorder presents to the emergency department for medical hernia repair incisional dehiscence. Patient seen in the emergency department yesterday where CT and lab were drawn. Patient states his pain is a 9/10 and he is having drainage from the wound.. Historical: - Allergies: 10:17 Morphine; iw 10:17 Toradol; iw 10:17 Ibuprofen; iw - PMHx: 10:17 Chronic pain; diabetes mellitus; Gout; Hernia; herniated discs; Hypertensive disorder; iw - PSHx: 10:17 Cholecystectomy; knee; pain pump -- dilaudid; right knee; back; iw - Immunization history:: Adult Immunizations up to date. - Infectious Disease History:: Denies. - Social history:: Smoking status: unknown. ROS: 21:12 Constitutional: Negative for fever, and chills. Cardiovascular: Negative for chest ms3 pain, and palpitations. Respiratory: Negative for shortness of breath, cough, wheezing, and pleuritic chest pain, Abdomen/GI: Negative for abdominal pain, nausea, vomiting, diarrhea, and constipation, MS/Extremity: Negative for injury and deformity, 21:12 Skin: Positive for Umbilical incisional dehiscence, Exam: 21:12 Constitutional: This is a well developed, well nourished patient who is awake, alert, ms3 and in no acute distress. Cardiovascular: Regular rate and rhythm with a normal S1 and S2. No gallops, murmurs, or rubs. Normal PMI, no JVD. No pulse deficits. Respiratory: Lungs have equal breath sounds bilaterally, clear to auscultation and percussion. No rales, rhonchi or wheezes noted. No increased work of breathing, no retractions or nasal flaring. 21:12 Abdomen/GI: Incision dehiscence of approximately 2 cm with serosanguineous fluid on dressings. No surrounding erythema, Vital Signs: 10:15 BP 159 / 99; Pulse 131; Resp 19; Temp 98.7; Pulse Ox 98% on R/A; iw 10:25 Pulse 106; kc6 MDM: 10:23 Medical Screening Exam initiated ms3 10:28 Management of patient was discussed with the following: Furnace Helper: Discussed case with ms3 Dr Boston and he recommends Bactroban ointment and gauze.. 21:12 Differential diagnosis: Wound dehiscence. Data reviewed: vital signs, nurses notes, and ms3 as a result, I will discharge patient. I considered the following discharge prescriptions or medication management in the emergency department Medications were administered in the Emergency Department. See MAR. Counseling: I had a detailed discussion with the patient and/or guardian regarding the historical points, exam findings, and any diagnostic results supporting the discharge/admit diagnosis, the need for outpatient follow up, to return to the emergency department if symptoms worsen or persist or if there are any questions or concerns that arise at home, Discussed labs and imaging from yesterday with patient. Special discussion: I discussed with the patient/guardian in detail that at this point there is no indication for admission to the hospital. It is understood, however, that if the symptoms persist or worsen the patient needs to return immediately for re-evaluation. ED course: Mupirocin ointment applied to dehiscence, gauze applied as discussed with Dr. Boston. Patient to follow-up with Dr. Boston in 2 to 3 days. Patient understands and agrees with plan. All questions were answered. Return precautions discussed include worsening symptoms, or any other concerns. Administered Medications: 10:44 Drug: Mupirocin Topical Ointment 2 % 1 application Topical once Route: Topical; Site: kc6 abdomen; 10:47 Follow up: Response: No adverse reaction kc6 Disposition Summary: 02/09/25 10:33 Discharge Ordered Notes: Location: Home ms3 Condition: Stable ms3 Diagnosis - Wound dehiscence ms3 Followup: ms3 - With: Everardo Boston MD - When: 2 - 3 days - Reason: Recheck today's complaints Discharge Instructions: - Discharge Summary Sheet ms3 - Wound Dehiscence, [id number] ms3 Forms: - Medication Reconciliation Form ms3 - Antibiotic Education ms3 - Prescription Opioid Use ms3 - Patient Portal Instructions ms3 - Leadership Thank You Letter ms3 Prescriptions: - mupirocin 2 % Topical ointment - apply 1 application TOPICAL route 2 times per day; 30 gram; Refills: 0, Product ms3 Selection Permitted Signatures: Linda Abbott RN RN iw Aman Canseco DO DO ms3 Corinne Oliver RN RN kc6 Corrections: (The following items were deleted from the chart) 10:18 10:17 PMHx: chronic back pain; [facility]
[2025-02-09 11:03] VITALS: BP 159/99; TEMP 98.7; O2SAT 98
== END 2025-02-09 10:48 | disposition home or self-care (01) ==
LOC: ER 09:56
DX: T81.31XA Disruption of external operation (surgical) wound, not elsewhere classified, initial encounter (principal)
CPT/HCPCS: 99284

== ENCOUNTER 2025-05-12 12:56 | Emergency (ER) | payer OTHER ==
--- OUTSIDE RECORDS SUMMARY | 2025-05-12 13:00 | XMS REPORT | Continuity of Care Document ---
Author Name Unknown Address [address] [facility] [place] [address] Organization [facility] [place] Address [address] [place] [address] Care Team Providers Care Narcotics And/Or Vice Detective Name Role Phone Brad LOVETT, Joselito Primary Care Physic meme [phone] [facility] Attending Clinician Unavailable Wale LOVETT, Silver Edward Attending Clinician [phone] Adrián Romero MD Attending Clinician [phone] Emilia Aguayo Attending Clinician [phone] Yuri LOVETT, Sagar Attending Clinician [phone] YAEL SANTAMARIA Attending Clinician Unavail able YAEL SANTAMARIA Attending Clinician Unavail able YAEL SANTAMARIA Admitting Clinician Unavail able Payers Payer Name Policy Type Policy Number Effective Date Expirati on Date Source [employer] [employer] COMM [id number] 2024 00:00:00 [facility] PPO/POS [id number] 2024 00:00:00 [place] [id number] 00:00:00 Problems Condition Name Condition Details Condition Category Status Onset Date Resolution Date Last Treatment Date Treating Clinician Comments Source Other spondylosi s with radiculopa thy, 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, lumbar region Disease Active 808 00:00: 00 [facility] Primary hypertensi on Primary hypertensi on Disease Active 04-30 00:00: 00 [facility] Aortic calcificat ion Aortic calcificat ion Disease Active 04-30 00:00: 00 [facility] Snores Snores Disease Active 04-30 00:00: 00 [facility] Obesity (BMI 30-39.9) Obesity (BMI 30-39.9) Disease Active 04-30 00:00: 00 [facility] Allergies, Adverse Reactions, Alerts Allergy Name Allergy Type Status Severity Reaction(s) Onset Date Inactive Date Treating Clinician Comments Source allopuri nol Propensi ty to adverse reaction to drug Active 04-18 00:00: 00 Ronen Prather ibuprofe n Propensi ty to adverse reaction to drug Active 02-14 00:00: 00 Ronen Prather Metformi n Propensi ty to adverse reaction s Active Nausea and/or Vomiting 02-11 00:00: 00 [facility] Ketorola c Propensi ty to adverse reaction s Active Hives 2016-10 2-15 00:00: 00 Other Reaction( s): Unknown [facility] Morphine Propensi ty to adverse reaction s Active Rash 2013-10 0-21 00:00: 00 Patient reported toleratin g Dilaudid without any adverse effects Red line up my veins and whelps [facility] Tubercul in Ppd Propensi ty to adverse reaction s Active Hives 2-03 00:00: 00 Tuberculo sis test = false positive due to allergy. [facility] NO KNOWN ALLERGIE S Drug Class Active [facility] Social History Social Habit Start Date Stop Date Quantity Comments Source [facility]coh[facility] beverage intake 2025-05-11 00:00:00 2025-05-11 00:00:00 Ex-drinker (finding) [facility] History of Social function 2025-05-02 00:00:00 2025-05-02 00:00:00 [facility] Tobacco use and exposure 2025-04-30 00:00:00 2025-04-30 00:00:00 Smokeless tobacco non-user [facility] Sex assigned at 1980 00:00:00 1980 00:00:00 [facility] Smoking Status Start Date Stop Date Source Never smoked tobacco [facility] Medications Ordered Medication Name Filled Medication Name Start Date Stop Date Current Medication? Ordering Clinician Indication Dosage Frequency Signature (SIG) Comments Components Source cloNIDine 0.3 mg tablet 04-30 10:03: 12 Yes .3mg Take 1 tablet by mouth. 2 tablets in the morning and 4 tablets in the evening [facility] tiZANidine 4 mg capsule 04-30 10:02: 16 Yes 4mg Take 1 capsule by mouth 4 times daily. [facility] HYDROcodone -acetaminop hen 10-325 mg tablet 04-26 00:00: 00 Yes 1{tbl} Take 1 tablet by mouth in the morning and 1 tablet at noon and 1 tablet in the evening. [facility] lamoTRIgine 25 mg tablet 04-25 00:00: 00 Yes 25mg Take 1 tablet by mouth in the morning. [facility] mirtazapine 7.5 mg tablet 04-25 00:00: 00 Yes 7.5mg Take 1 tablet by mouth at bedtime. [facility] lamotrigine 25 mg tablet 04-25 00:00: 00 Yes 1mg Ronen Prather amitriptyli ne 25 mg tablet 04-25 00:00: 00 Yes 1mg Ronen Prather amitriptyli ne 10 mg tablet 04-25 00:00: 00 Yes 1mg Ronen Prather mirtazapine 7.5 mg tablet 04-25 00:00: 00 Yes 1mg Ronen Prather clonidine HCl 0.3 mg tablet 04-20 00:00: 00 Yes mg Ronen Prather clonidine HCl 0.3 mg tablet 04-18 00:00: 00 Yes mg Ronen Prather Novolin 70-30 FlexPen U-100 Insulin 100 unit/mL (70-30) subcutaneou s 04-18 00:00: 00 Yes unit/mL (70-30) Ronen Prather clonidine HCl 0.3 mg tablet 2025-0 7-15 00:00: 00 Yes mg Ronen Prather clonidine HCl 0.3 mg tablet 0 6-24 00:00: 00 Yes mg Ronen Prather telmisartan 40 mg tablet 0 6-10 00:00: 00 Yes 1mg Ronen Prather clonidine HCl 0.3 mg tablet 0 6-10 00:00: 00 Yes mg Ronen Prather tizanidine 4 mg tablet 0 6-10 00:00: 00 Yes mg Ronen Prather clonidine HCl 0.3 mg tablet 0 6-09 00:00: 00 Yes mg Ronen Prather amitriptyli ne 50 mg tablet 0 5-17 00:00: 00 Yes mg Ronen Prather prednisone 10 mg tablet 5-14 00:00: 00 Yes 1mg Ronen Prather clonidine HCl 0.3 mg tablet 0 5-14 00:00: 00 Yes 1mg Ronen Prather amitriptyli ne 50 mg tablet 0 -14 00:00: 00 Yes 1mg Ronen Prather tizanidine 4 mg capsule 0 -14 00:00: 00 Yes 1mg Ronen Prather insulin glargine 100 unit/mL injection 19 00:00: 00 Yes 5U inject 5 Units under the skin in the morning. [facility] Vital Signs Vital Name Observation Time Observation Value Comments S ource Systolic blood pressure 2025-05-11 13:40:00 124 mm[Hg] [place] [facility] Diastolic blood pressure 2025-05-11 13:40:00 87 mm[Hg] [place] [facility] Heart rate 2025-05-11 13:40:00 87 /min [facility] Body temperature 2025-05-11 13:40:00 35.94 Lou [facility] Body height 2025-05-11 13:40:00 182.9 cm [facility] Body weight 2025-05-11 13:40:00 108.047 kg [facility] BMI 2025-05-11 13:40:00 32.31 kg/m2 [facility] Oxygen saturation in Arterial blood by Pulse oximetry 2025-05-11 13:40:00 97 /min [facility] Systolic blood pressure 2025-05-02 14:00:00 121 mm[Hg] [facility] Diastolic blood pressure 2025-05-02 14:00:00 86 mm[Hg] [facility] Heart rate 2025-05-02 14:00:00 96 /min [facility] Body temperature 2025-05-02 14:00:00 36.11 Lou [facility] Respiratory rate 2025-05-02 14:00:00 18 /min [facility] Body height 2025-05-02 14:00:00 182.9 cm [facility] Body weight 2025-05-02 14:00:00 107.185 kg [facility] BMI 2025-05-02 14:00:00 32.05 kg/m2 [facility] Oxygen saturation in Arterial blood by Pulse oximetry 2025-05-02 14:00:00 98 /min [facility] Systolic blood pressure 2025-04-30 15:05:00 111 mm[Hg] [facility] Diastolic blood pressure 2025-04-30 15:05:00 76 mm[Hg] [facility] Heart rate 2025-04-30 15:05:00 85 /min [facility] Respiratory rate 2025-04-30 15:05:00 18 /min [facility] Body height 2025-04-30 15:05:00 182.9 cm [facility] Body weight 2025-04-30 15:05:00 107.593 kg [facility] BMI 2025-04-30 15:05:00 32.17 kg/m2 [facility] Oxygen saturation in Arterial blood by Pulse oximetry 2025-04-30 15:05:00 95 /min [facility] BP Systolic 2025-04-25 08:41:00 119 mm[Hg] Luis Prather BP Diastolic 2025-04-25 08:41:00 75 mm[Hg] Desmond Prather Weight Measured 2025-04-25 08:41:00 238.60 pounds Ronen F Crescencio Height Measured 2025-04-25 08:41:00 65.00 inches Ronen F Crescencio Body Temperature 2025-04-25 08:41:00 98.00 degrees Ronen F Crescencio Heart Rate 2025-04-25 08:41:00 94.00 /min Stacy en F Crescencio Respiratory Rate 2025-04-25 08:41:00 18.00 /min Ronen F Crescencio BP Systolic 2025-04-18 14:13:00 133 mm[Hg] Step hen F Crescencio BP Diastolic 2025-04-18 14:13:00 97 mm[Hg] Desmond phen F Crescencio Weight Measured 2025-04-18 14:13:00 234.80 pounds Ronen F Crescencio Height Measured 2025-04-18 14:13:00 65.00 inches Ronen F Crescencio Body Temperature 2025-04-18 14:13:00 97.90 degrees Ronen F Crescencio Heart Rate 2025-04-18 14:13:00 105.00 /min Step hen F Crescencio Respiratory Rate 2025-04-18 14:13:00 Ronen F Crescencio BP Systolic 2025-03-15 15:17:00 118 mm[Hg] Step hen F Crescencio BP Diastolic 2025-03-15 15:17:00 86 mm[Hg] Desmond phen F Crescencio Weight Measured 2025-03-15 15:17:00 210.00 pounds Ronen F Crescencio Height Measured 2025-03-15 15:17:00 65.00 inches Ronen F Crescencio Body Temperature 2025-03-15 15:17:00 98.20 degrees Ronen F Crescencio Heart Rate 2025-03-15 15:17:00 106.00 /min Step hen F Crescencio Respiratory Rate 2025-03-15 15:17:00 Ronen F Crescencio BP Systolic 2025-03-13 11:03:00 150 mm[Hg] Step hen F Crescencio BP Diastolic 2025-03-13 11:03:00 103 mm[Hg] Desmond phen F Crescencio Weight Measured 2025-03-13 11:03:00 223.80 pounds Ronen F Crescencio Height Measured 2025-03-13 11:03:00 65.00 inches Ronen F Crescencio Body Temperature 2025-03-13 11:03:00 98.20 degrees Ronen F Crescencio Heart Rate 2025-03-13 11:03:00 106.00 /min Luis hen Eyad Prather Respiratory Rate 2025-03-13 11:03:00 Ronen Prather Body Temperature 2025-02-14 13:45:00 98.30 degrees Ronen Prather Heart Rate 2025-02-14 13:45:00 99.00 /min Stacy en F Crescencio Respiratory Rate 2025-02-14 13:45:00 Ronen Prather BP Systolic 2025-02-14 13:45:00 141 mm[Hg] Step hen F Crescencio BP Diastolic 2025-02-14 13:45:00 87 mm[Hg] Desmond talavera F Crescencio Weight Measured 2025-02-14 13:45:00 220.00 pounds Ronen Prather Height Measured 2025-02-14 13:45:00 65.00 inches Ronen Prather Procedures Procedure Date / Time Performed Performing Clinicia n Source XR LUMBAR SPINE 4 VW 2025-05-02 15:12:00 Emilia Lew [facility] Encounters Start Date/Time End Date/Time Encounter Type Admission Type Attending [facility] Care Facility Care Department Encounter ID Source 2025-05-11 10:00:00 2025-05-11 10:15:00 Cheese Specialist Visit [facility] Silver Echevarria [facility] [id number] [id number] [id number] [id number] [facility] 2025-05-11 09:00:00 2025-05-11 09:30:00 Office Visit Adrián Romero Rudy P [facility]) [id number] 350.1.13.10 4.2.7.2.686 [id number] [facility] 2025-05-02 09:33:35 2025-05-02 23:59:00 Hospital Encounter Emilia Lew [facility]) [id number] 350.1.13.10 [id number] [id number] [facility] 2025-05-02 08:00:00 2025-05-02 09:27:09 Office Visit Emilia Lew [facility] ([facility]) [id number] 350.1.13.10 4.2.7.2.686 [id number] [facility] 2025-04-30 00:00:00 2025-04-30 16:05:29 Telephone Sagar Welch [facility] [id number] [id number] [id number] [id number] [facility] 2025-04-30 13:46:16 2025-04-30 13:46:16 Outpatient [facility] [id number] Ronen Castano Crescencio 2025-04-30 09:40:00 2025-04-30 10:23:19 Office Visit Sagar Welch [facility] [id number] 350.1.13.10 4.2.7.2.686 [id number] [facility] 2025-04-25 09:36:13 2025-04-25 09:36:13 Outpatient [facility] [id number] Ronen Castano Crescencio 2025-04-24 14:08:22 2025-04-24 15:19:28 Outpatient Elective [facility] EOUT [id number] [facility] 2025-04-18 14:09:37 2025-04-18 14:09:37 Outpatient [facility] [id number] Ronen Castano Crescencio 2025-04-18 00:00:00 2025-04-18 00:00:00 Outpatient Visit [facility] [id number] Ronen Castano Crescencio 2025-03-15 15:10:55 2025-03-15 15:10:55 Outpatient [facility] [id number] Ronen Castano Crescencio 2025-03-15 00:00:00 2025-03-15 00:00:00 Outpatient Visit [facility] [id number] Ronen Prather 2025-03-13 11:02:23 2025-03-13 11:02:23 Outpatient [facility] [id number] Ronen Prather 2025-03-13 00:00:00 2025-03-13 00:00:00 Outpatient Visit [facility] [id number] Ronen Prather 2025-02-23 16:24:01 2025-02-23 16:24:01 Outpatient [facility] [id number] Ronen Prather 2025-02-14 13:53:44 2025-02-14 13:53:44 Outpatient [facility] [id number] Ronen Prather 2025-02-14 00:00:00 2025-02-14 00:00:00 Outpatient Visit [facility] [id number] Ronen Prather 2024-12-19 18:44:00 2024-12-20 01:31:00 Emergency X YAEL SANTAMARIA [facility] [id number] [facility] Results Test Description Test Time Test Comments Results Resul t Comments Source XR Lumbar spine 4 vw 2025-05-02 15:33:46 XR LUMBAR SPINE 4 VW HISTORY: low back pain Flex/ex, AP/lat TECHNIQUE: AP, lateral flexion/exten larry views of the lumbar spine wereobtained. COMPARISON: None. [facility] Ronen PratherHIV 1 RNA, QUANTITATIVE REAL TIME [id number] 00:00:00* Test Item Value Reference Range Interpretation Comme nts HIV 1 RNA, QN PCR (test code = 22568-1) NOT DETECTED copies/mL HIV 1 RNA, QN PCR (test code = 30041-9) NOT DETECTED Logcopies/mL Ronen PratherCOMPREHENSIVE METABOLIC [id number] 00:00:00* Test Item Value Reference Range Interpretation Comme nts GLUCOSE (test code = 2345-7) 58 mg/dL UREA NITROGEN (BUN) (test code = 3094-0) 19 mg/dL CREATININE (test code = 2160-0) 0.97 mg/dL EGFR (test code = 66576-0) 98 mL/min/1.73m2 BUN/CREATININE RATIO (test code = 3097-3) SEE NOTE: (calc) SODIUM (test code = 2951-2) 137 mmol/L POTASSIUM (test code = 2823-3) 4.7 mmol/L CHLORIDE (test code = 2075-0) 103 mmol/L CARBON DIOXIDE (test code = 8-9) 22 mmol/L CALCIUM (test code = 84404-8) 9.6 mg/dL PROTEIN, TOTAL (test code = 2885-2) 7.3 g/dL ALBUMIN (test code = 1751-7) 4.3 g/dL GLOBULIN (test code = 03230-5) 3.0 g/dL(calc) ALBUMIN/GLOBULIN RATIO (test code = 1759-0) 1.4 (calc) BILIRUBIN, TOTAL (test code = 1975-2) 0.3 mg/dL ALKALINE PHOSPHATASE (test code = 6768-6) 140 U/L AST (test code = 1920-8) 31 U/L ALT (test code = 1742-6) 71 U/L Ronen Eyad CrescencioLIPID [id number] 00:00:00* Test Item Value Reference Range Interpretation Comme nts CHOLESTEROL, TOTAL (test cod e = 2093-3) 143 mg/dL HDL CHOLESTEROL (test code = 2085-9) 54 mg/dL TRIGLYCERIDES (test code = 2571-8) 96 mg/dL LDL-CHOLESTEROL (test code = 79224-5) 71 mg/dL(calc) CHOL/HDLC RATIO (test code = 9830-1) 2.6 (calc) NON HDL CHOLESTEROL (test co de = 28425-8) 89 mg/dL(calc) Ronen PratherHEMOGLOBIN [id number] 00:00:00* Test Item Value Reference Range Interpretation Comme nts HEMOGLOBIN A1c (test code = 4548-4) 7.8 % Ronen PratherCOMPREHENSIVE METABOLIC [id number] 00:00:00* Test Item Value Reference Range Interpretation Comme nts GLUCOSE (test code = 2345-7) 58 mg/dL UREA NITROGEN (BUN) (test code = 3094-0) 19 mg/dL CREATININE (test code = 2160-0) 0.97 mg/dL EGFR (test code = 70279-6) 98 mL/min/1.73m2 BUN/CREATININE RATIO (test code = 3097-3) SEE NOTE: (calc) SODIUM (test code = 2951-2) 137 mmol/L POTASSIUM (test code = 2823-3) 4.7 mmol/L CHLORIDE (test code = 2075-0) 103 mmol/L CARBON DIOXIDE (test code = 8-9) 22 mmol/L CALCIUM (test code = 82937-8) 9.6 mg/dL PROTEIN, TOTAL (test code = 2885-2) 7.3 g/dL ALBUMIN (test code = 1751-7) 4.3 g/dL GLOBULIN (test code = 17622-2) 3.0 g/dL(calc) ALBUMIN/GLOBULIN RATIO (test code = 1759-0) 1.4 (calc) BILIRUBIN, TOTAL (test code = 1975-2) 0.3 mg/dL ALKALINE PHOSPHATASE (test code = 6768-6) 140 U/L AST (test code = 1920-8) 31 U/L ALT (test code = 1742-6) 71 U/L Ronen Eyad CrescencioLIPID [id number] 00:00:00* Test Item Value Reference Range Interpretation Comme nts CHOLESTEROL, TOTAL (test cod e = 2093-3) 143 mg/dL HDL CHOLESTEROL (test code = 2085-9) 54 mg/dL TRIGLYCERIDES (test code = 2571-8) 96 mg/dL LDL-CHOLESTEROL (test code = 23619-3) 71 mg/dL(calc) CHOL/HDLC RATIO (test code = 9830-1) 2.6 (calc) NON HDL CHOLESTEROL (test co de = 44958-1) 89 mg/dL(calc) Ronen Eyad CrescencioHEMOGLOBIN [id number] 00:00:00* Test Item Value Reference Range Interpretation Comme nts HEMOGLOBIN A1c (test code = 4548-4) 7.8 % Ronen PratherCOMPREHENSIVE METABOLIC [id number] 00:00:00* Test Item Value Reference Range Interpretation Comme nts GLUCOSE (test code = 2345-7) 58 mg/dL UREA NITROGEN (BUN) (test code = 3094-0) 19 mg/dL CREATININE (test code = 2160-0) 0.97 mg/dL EGFR (test code = 14866-5) 98 mL/min/1.73m2 BUN/CREATININE RATIO (test code = 3097-3) SEE NOTE: (calc) SODIUM (test code = 2951-2) 137 mmol/L POTASSIUM (test code = 2823-3) 4.7 mmol/L CHLORIDE (test code = 2075-0) 103 mmol/L CARBON DIOXIDE (test code = 2027-9) 22 mmol/L CALCIUM (test code = 23159-1) 9.6 mg/dL PROTEIN, TOTAL (test code = 2885-2) 7.3 g/dL ALBUMIN (test code = 1751-7) 4.3 g/dL GLOBULIN (test code = 32806-9) 3.0 g/dL(calc) ALBUMIN/GLOBULIN RATIO (test code = 1759-0) 1.4 (calc) BILIRUBIN, TOTAL (test code = 1975-2) 0.3 mg/dL ALKALINE PHOSPHATASE (test code = 6768-6) 140 U/L AST (test code = 1920-8) 31 U/L ALT (test code = 1742-6) 71 U/L Ronen PratherLIPID [id number] 00:00:00* Test Item Value Reference Range Interpretation Comme nts CHOLESTEROL, TOTAL (test cod e = 2093-3) 143 mg/dL HDL CHOLESTEROL (test code = 2085-9) 54 mg/dL TRIGLYCERIDES (test code = 2571-8) 96 mg/dL LDL-CHOLESTEROL (test code = 11426-7) 71 mg/dL(calc) CHOL/HDLC RATIO (test code = 9830-1) 2.6 (calc) NON HDL CHOLESTEROL (test co de = 53293-7) 89 mg/dL(calc) Ronen PratherHEMOGLOBIN [id number] 00:00:00* Test Item Value Reference Range Interpretation Comme nts HEMOGLOBIN A1c (test code = 4548-4) 7.8 % Ronen Prather Notes Date/Time Note Provider Source 2025-05-11 10:00:00 Images from the original note were not included. Venipuncture collection performed by clean technique on the left anticubitus. Total of 1 attempts were made. Slight pressure and a bandage/dressing were applied to the site(s). The patient experienced no complications. The following specimens were processed according to instructions and sent to [facility] laboratories LT BLUE Lt Green SST RED LAV 1 PPT DK GREEN (L) DK GREEN (S)/// Fibrosure set BLUE,SST & LAV HUNT DK BLUE (K2) DK BLUE (S) ACD RST BLOOD CULTURE SET BLOOD CULTURE (AFB AND FUNGUS ) VERIFYNOW Monogram TYPENEX (LAV TOP) ARM BAND ON PATIENT Z plasma preservative tube (call lab for tube)[facility] Vasoactive Intestinal Peptide (call lab for tube)[facility] FEDEX ( NIPT) Thrombotic Risk Reflex Panel URINE URINE CULTURE APTIMA URINE STOOL [facility] 2025-04-30 16:04:49 Records received from [facility]. Placed in Dr. Welch's folder Maria T Knight RN [facility]2025-06-12 00:00:00 [facility]2025-06-10 00:00:00 [facility]2025-05-14 00:00:00 [facility]
[2025-05-12] MEDS ORDERED: FENTANYL CITR 100 MCG/2 ML ONE (15:15)
--- NOTE | 2025-05-12 15:19 | RAD REPORT ---
EXAMINATION: XR Elbow Right 3 View CLINICAL INDICATION: Male, 44 years old. PAIN RIGHT TECHNIQUE: 3 view radiographs of the right elbow were obtained. COMPARISON: No prior exam. FINDINGS: No evidence of fracture or dislocation. Normal alignment. No joint effusion. No evidence of arthropathy. No suspicious focal bone lesion. Soft tissues are unremarkable. IMPRESSION: No acute or significant abnormalities.
--- NOTE | 2025-05-12 15:20 | RAD REPORT ---
EXAM: XR Hand Right 3 View HISTORY: [facility] MAIN PAIN Bed Name: [id number] COMPARISON: None TECHNIQUE: 3 radiographic views of the RIGHT hand submitted. FINDINGS: No evidence of acute fracture or dislocation. Joint alignment is maintained. No soft tissu e swelling is seen.. No significant degenerative changes are present. IMPRESSION: No significant bone or joint abnormality.
--- NOTE | 2025-05-12 16:31 | EDPHYS ---
Physician Documentation [facility] Name: Kaden Turcios Age: 44 yrs Sex: Male : 1980 Arrival Date: 05/12/2025 Time: 12:56 Bed 9 Private MD: ED Physician Ramez Ramirez HPI: 05/12 16:23 This 44 yrs old Male presents to ER via Wheelchair with complaints of Back Pain, Hand ci Pain. 16:23 Patient is a 44-year-old male with PMH chronic pain syndrome, diabetes, gout, herniated ci disc, hypertension who presents to the ED with multiple pain complaints. Patient endorses chronic pain to his right elbow and right hand from a pinched nerve that he sustained after getting surgery elbow surgery. Patient reports pain got worse in the past 2 days. Patient also complaining of nasal pain, feels like he has a fracture. 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 Discussed obtaining nose x-rays but patient declined x-ray of his nose, agreeable to get the x-ray of his hand and elbow.. Historical: - Allergies: 13:19 Ibuprofen; ll1 13:19 Morphine; ll1 13:19 Toradol; ll1 - PMHx: 13:19 Chronic pain; diabetes mellitus; Gout; Hernia; herniated discs; Hypertensive disorder; ll1 - PSHx: 13:19 B sciatic nerve block (kn); back; Cholecystectomy; hernia repair (kn); knee; pain pump ll1 -- dilaudid; right knee; - Immunization history:: Adult Immunizations up to date. - Infectious Disease History:: Denies. - Social history:: Smoking status: Patient denies any tobacco usage or history of. - History obtained from: . ROS: 16:23 Constitutional: Negative for fever, chills, and weight loss, Cardiovascular: Negative ci for chest pain, palpitations, and edema, Abdomen/GI: Negative for abdominal pain, nausea, vomiting, diarrhea, and constipation, Exam: 16:23 Constitutional: This is a well developed, well nourished patient who is awake, alert, ci and in no acute distress. Head/Face: Normocephalic, atraumatic. Eyes: Pupils equal round and reactive to light, extra-ocular motions intact. Lids and lashes normal. Conjunctiva and sclera are non-icteric and not injected. Cornea within normal limits. Periorbital areas with no swelling, redness, or edema. 16:23 ENT: Nose: External nose: Tenderness to palpation to the nasal bridge, no obvious deformity, 16:23 Musculoskeletal/extremity: Right elbow atraumatic, right head atraumatic. Patient does have tenderness to palpation to the right pinky finger of the right hand. Radial pulse, brachial pulse 2+, sensation to light touch is intact, cap refill less than 2 seconds. Vital Signs: 13:19 BP 149 / 101; Pulse 93; Resp 17; Temp 97.4; Pulse Ox 100% ; Weight 107.95 kg; Height 6 ll1 ft. 0 in. ; Pain 9/10; 15:32 BP 158 / 94; Pulse 90; Resp 15; Pulse Ox 100% ; jl7 13:19 Body Mass Index 32.28 (107.95 kg, 182.88 cm) ll1 13:19 Pain Scale: Adult ll1 MDM: 13:23 Medical Screening Exam initiated ci 16:23 Differential diagnosis: chronic back pain, Fracture Joint Injury sprain. Data reviewed: ci vital signs, nurses notes. ED course: X-ray with no acute fracture. Pain is acute on chronic. Patient was given fentanyl in the ER. Will refer to orthopedic surgery or pain management. No acute findings warranted admission at this time.. 16:42 Special discussion: Based on the history and exam findings, there is no indication for ci further emergent testing or inpatient evaluation. I discussed with the patient/guardian the need to see the orthopedic surgeon for further evaluation of the symptoms. I discussed with the patient/guardian the need to see the bait painter for further evaluation of the symptoms. ED course: Discussed negative x-ray with patient and . Patient stated that he knows he does not have a fracture as his pain is from a pinched nerve. I did discuss patient has been treated appropriately with fentanyl for pain. Discussed need for close outpatient follow-up with orthopedic surgery for further workup, patient became upset and walked out of the ER stating this is ridiculous.. 05/12 13:35 Order name: Elbow Right 3 View XRAY; Complete Time: 16:23 ci 05/12 13:35 Order name: Hand Right 3 View XRAY; Complete Time: 16:23 ci Administered Medications: 15:32 Drug: fentaNYL (PF) IM 50 mcg IM once Route: IM; Site: right deltoid; jl7 16:15 Follow up: Response: No adverse reaction; Pain is unchanged, physician notified jl7 Disposition Summary: 05/12/25 16:30 Discharge Ordered Notes: Location: Home ci Condition: Stable ci Diagnosis - Contusion of right hand ci - Pain in right elbow ci - Other chronic pain ci Followup: ci - With: Private Physician - When: 1 - 2 days - Reason: Recheck today's complaints, Re-evaluation by your physician Discharge Instructions: - Discharge Summary Sheet ci - Musculoskeletal Pain ci Forms: - Medication Reconciliation Form ci - Antibiotic Education ci - Prescription Opioid Use ci - Patient Portal Instructions ci - Leadership Thank You Letter ci Signatures: Dispatcher [employer] EDSebas Collins RN RN jl7 Marcus Madrid RN RN ll1 Ramez Ramirez ci Corrections: (The following items were deleted from the chart) 16:25 16:23 Patient is a 44-year-old male with PMH chronic pain syndrome, diabetes, gout, ci herniated disc, hypertension who presents to the ED with multiple pain complaints. Patient endorses chronic pain to his right elbow and right head that got worse in the past 2 days. Patient also complaining of nasal pain, feels like he has a fracture. Discussed obtaining x-rays but patient declined x-ray of his nose, agreeable to get the x-ray of his head and elbow.. ci 16:26 16:23 Patient is a 44-year-old male with PMH chronic pain syndrome, diabetes, gout, ci herniated disc, hypertension who presents to the ED with multiple pain complaints. Patient endorses chronic pain to his right elbow and right head that got worse in the past 2 days. Patient also complaining of nasal pain, feels like he has a fracture. Discussed obtaining x-rays but patient declined x-ray of his nose, agreeable to get the x-ray of his head and elbow.. ci 16:41 16:23 Patient is a 44-year-old male with PMH chronic pain syndrome, diabetes, gout, ci herniated disc, hypertension who presents to the ED with multiple pain complaints. Patient endorses chronic pain to his right elbow and right hand that got worse in the past 2 days. Patient also complaining of nasal pain, feels like he has a fracture. 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 Discussed obtaining x-rays but patient declined x-ray of his nose, agreeable to get the x-ray of his head and elbow.. ci
--- NOTE | 2025-05-12 16:31 | ER ---
Nurse's Notes [facility] Name: Kaden Turcios Age: 44 yrs Sex: Male : 1980 Arrival Date: 05/12/2025 Time: 12:56 Bed 9 Private MD: Diagnosis: Contusion of right hand;Pain in right elbow;Other chronic pain Presentation: 05/12 13:19 Chief complaint: Patient states: R hand pain, swelling, for 2 days. Nasal pain from ll1 previous break. Severe R leg pain from back problems. Coronavirus screen: Client denies travel out of the [place] in the last 14 days. At this time, the client does not indicate any symptoms associated with coronavirus-19. Ebola Screen: Patient denies travel to an Ebola-affected area in the 21 days before illness onset. Initial Sepsis Screen: Does the patient meet any 2 criteria? No. Patient's initial sepsis screen is negative. Does the patient have a suspected source of infection? No. Patient's initial sepsis screen is negative. Risk Assessment: Do you want to hurt yourself or someone else? Patient reports no desire to harm self or others. Onset of symptoms was May 11, 2025. 13:19 Method Of Arrival: Wheelchair ll1 13:19 Acuity: JOHN 3 ll1 Triage Assessment: 13:19 General: Appears distressed, uncomfortable, Behavior is calm, cooperative, appropriate ll1 for age. Pain: Complains of pain in right arm Quality of pain is described as aching. EENT: Reports nasal pain. Musculoskeletal: Reports pain in right arm. Historical: - Allergies: 13:19 Ibuprofen; ll1 13:19 Morphine; ll1 13:19 Toradol; ll1 - PMHx: 13:19 Chronic pain; diabetes mellitus; Gout; Hernia; herniated discs; Hypertensive disorder; ll1 - PSHx: 13:19 B sciatic nerve block (kn); back; Cholecystectomy; hernia repair (kn); knee; pain pump ll1 -- dilaudid; right knee; - Immunization history:: Adult Immunizations up to date. - Infectious Disease History:: Denies. - Social history:: Smoking status: Patient denies any tobacco usage or history of. - History obtained from: . Screenin:09 [facility] ED Fall Risk Assessment (Adult) History of falling in the last 3 months, jl7 including since admission No falls in past 3 months (0 pts) Confusion or Disorientation No (0 pts) Intoxicated or Sedated No (0 pts) Impaired Gait No (0 pts) Mobility Assist Device Used No (0 pt) Altered Elimination No (0 pt) Score/Fall Risk Level 0 - 2 = Low Risk Oriented to surroundings, Maintained a safe environment. Abuse screen: Denies threats or abuse. Denies injuries from another. Nutritional screening: No deficits noted. Tuberculosis screening: No symptoms or risk factors identified. Assessment: 15:15 General: Appears in no apparent distress. uncomfortable, Behavior is cooperative, jl7 anxious. Pain: Complains of pain in right hand and right leg Pain currently is 9 out of 10 on a pain scale. Neuro: Level of Consciousness is awake, alert, obeys commands, Oriented to person, place, time, situation. Cardiovascular: Patient's skin is warm and dry. Respiratory: Airway is patent Respiratory effort is even, unlabored, Respiratory pattern is regular, symmetrical. Derm: Skin is pink, warm \\T\\ dry. 15:32 Reassessment: Pt reports fentanyl doesn't work, reports he has a fentanyl pump and jl7 that's the only way it works, report Dilaudid works. Dr. Bueno notified and request the patient to be notified that the only other medication that she can give for chronic pain is Calcium by mouth. Pt notified and states "I'll take the shot." Pt medicated as ordered. 16:08 Reassessment: Pt requested to speak to the charge nurse. This nurse is the charge [facility] nurse, asked pt if everything was ok and pt proceeded to say that this nurses bedside manner was horrible by not giving him something different for his hand pain and that the floor is dirty and this nurse left him in a dirty room. This nurse attempted to ask the pt additional questions but the patient would not allow for any words to come out before continuing to speak loudly. supervisor beehive kiln notified of pt dissatisfaction and pt notified the limehouse worker would be to him room as soon as possible. Vital Signs: 13:19 BP 149 / 101; Pulse 93; Resp 17; Temp 97.4; Pulse Ox 100% ; Weight 107.95 kg; Height 6 ll1 ft. 0 in. ; Pain 9/10; 15:32 BP 158 / 94; Pulse 90; Resp 15; Pulse Ox 100% ; jl7 13:19 Body Mass Index 32.28 (107.95 kg, 182.88 cm) ll1 13:19 Pain Scale: Adult ll1 ED Course: 13:01 Patient arrived in ED. gl 13:19 Arm band placed on. ll1 13:21 Triage completed. ll1 13:23 Ramez Ramirez is Attending Physician. ci 14:33 Patient placed in an exam room, on a stretcher. jl7 14:50 Elbow Right 3 View XRAY In Process Unspecified. EDMS 14:50 Hand Right 3 View XRAY In Process Unspecified. EDMS 15:22 Sebas Driver, RN is Primary Nurse. jl7 16:09 Patient has correct armband on for positive identification. jl7 16:09 No provider procedures requiring assistance completed. Patient did not have IV access jl7 during this emergency room visit. 16:43 Provided Education on: Discharge instructions provided by ANA MARIA. jl7 Administered Medications: 15:32 Drug: fentaNYL (PF) IM 50 mcg IM once Route: IM; Site: right deltoid; jl7 16:15 Follow up: Response: No adverse reaction; Pain is unchanged, physician notified jl7 Medication: 16:14 VIS not applicable for this client. jl7 Outcome: 16:30 Discharge ordered by . ci 16:42 Discharged to home ambulatory, with family, Discharged by [place], Suegy Garcia jl7 16:42 Condition: stable 16:42 Discharge instructions given to patient, significant other, Instructed on discharge instructions, follow up and referral plans. Demonstrated understanding of instructions, follow-up care, Instructions provided by ANA MARIA 16:43 Patient left the ED. jl7 Signatures: Dispatcher [employer] EDMS Sebas Driver, RN RN jl7 Marcus Madrid RN RN ll1 Ramez Ramirez Glenna, Reg Reg gl
[2025-05-12 16:47] VITALS: TEMP 97.4; O2SAT 100
[2025-05-12 16:48] VITALS: BP 158/94
== END 2025-05-12 16:43 | disposition home or self-care (01) ==
LOC: ER 12:56
DX: S60.221A Contusion of right hand, initial encounter (principal); M25.521 Pain in right elbow; G89.29 Other chronic pain
CPT/HCPCS: 73130; 73080; 96372; 99284; J3010

== ENCOUNTER 2025-05-29 18:20 | Emergency (ER) | payer OTHER ==
--- OUTSIDE RECORDS SUMMARY | 2025-05-29 18:24 | XMS REPORT | Continuity of Care Document ---
Author Name Unknown Address [address] [facility] [address] [place] [address] [facility] [place] Address [address] [facility] [place] [address] Care Team Providers Care Manager Adult Name Role Phone Brad LOVETT, Joselito Primary Care Physic meme [phone] Jamaal Britt MD Attending Clinician [phone] Genesis Manzano MD Attending Clinician [phone] JARRET JAMES Attending Clinician Unavailable JARRET JAMES Attending Clinician Unavailable [facility] Attending Clinician Unavailable Wale LOVETT, Silver Edward Attending Clinician [phone] Emilia Agauyo Attending Clinician [phone] Sagar Welch MD Attending Clinician [phone] YAEL SANTAMARIA Attending Clinician Unavail able YAEL SANTAMARIA Attending Clinician Unavail able Genesis Manzano MD Admitting Clinician [phone] JARRET JAMES Admitting Clinician Unavailable YAEL SANTAMARIA Admitting Clinician Unavail able Payers Payer Name Policy Type Policy Number Effective Date Expirati on Date Source [facility] PPO/POS [id number] 2024 00:00:00 [facility] CHOICE PLUS COMM [id number] 2024 00:00:00 [place] [id number] 00:00:00 Problems Condition Name Condition Details Condition Category Status Onset Date Resolution Date Last Treatment Date Treating Clinician Comments Source Other spondylosi s with radiculopa thy, 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, lumbar region Disease Active 8-08 00:00: 00 [facility] Primary hypertensi on Primary hypertensi on Disease Active 04-30 00:00: 00 [facility] Aortic calcificat ion Aortic calcificat ion Disease Active 04-30 00:00: 00 [facility] Snores Snores Disease Active 04-30 00:00: 00 [facility] Obesity (BMI 30-39.9) Obesity (BMI 30-39.9) Disease Active 04-30 00:00: 00 [facility] Allergies, Adverse Reactions, Alerts Allergy Name Allergy Type Status Severity Reaction(s) Onset Date Inactive Date Treating Clinician Comments Source IBUPROFE N DRUG INGREDI Active Med Unknown-Cmnt 8- 00:00: 00 [facility] Ibuprofe n Propensi ty to adverse reaction s Active Unknown - See comments 8- 00:00: 00 Not taking due to past of DARCIE [facility] allopuri nol Propensi ty to adverse reaction to drug Active 7-16 00:00: 00 Ronen Prather ibuprofe n Propensi ty to adverse reaction to drug Active 5-14 00:00: 00 Ronen Prather Metformi n Propensi ty to adverse reaction s Active Nausea and/or Vomiting 5-11 00:00: 00 [facility] METFORMI N DRUG INGREDI Active Med N/V 5-11 00:00: 00 [facility] Ketorola c Propensi ty to adverse reaction s Active Hives 2016-10 2-15 00:00: 00 Other Reaction( s): Unknown [facility] KETOROLA C DRUG INGREDI Active Med Hives 2016-10 2-15 00:00: 00 [facility] MORPHINE DRUG INGREDI Active High Hives 2014-1 0-21 00:00: 00 [facility] Morphine Propensi ty to adverse reaction s Active Rash 2013-10 00:00: 00 Patient reported toleratin g Dilaudid without any adverse effects Red line up my veins and whelps [facility] Tubercul in Ppd Propensi ty to adverse reaction s Active Hives 2 00:00: 00 Tuberculo sis test = false positive due to allergy. [facility] TUBERCUL IN PPD DRUG Active Med Hives 2 00:00: 00 [facility] NO KNOWN ALLERGIE S Drug Class Active [facility] Social History Social Habit Start Date Stop Date Quantity Comments Source [facility] Al[facility] intake 2025-05-22 00:00:00 2025-05-22 00:00:00 Ex-drinker (finding) [facility] Education 2025-05-21 00:00:00 2025-05-21 00:00:00 21 [facility] History of Social function 2025-05-02 00:00:00 2025-05-02 00:00:00 [facility] Tobacco use and exposure 2025-04-30 00:00:00 2025-04-30 00:00:00 Smokeless tobacco non-user [facility] History of Occupation 2021-01-21 00:00:00 2024-10-04 00:00:00 [facility] Sex assigned at 1980 00:00:00 1980 00:00:00 [facility] Smoking Status Start Date Stop Date Source Never smoked tobacco [facility] Medications Ordered Medication Name Filled Medication Name Start Date Stop Date Current Medication? Ordering Clinician Indication Dosage Frequency Signature (SIG) Comments Components Source enoxaparin (LOVENOX) injection 40 mg 05-22 22:00: 00 Yes 40mg 40 mg, Subcutaneo us, DAILY AT 1700, First dose on Wed05/22/25 at 1700, Until Discontinu ed, Routine [facility] HYDROmorpho ne (DILAUDID) injection 1 mg HYDROmorpho ne (DILAUDID) injection 1 mg 05-22 17:00: 00 05-22 16:26 :00 Yes 1mg 1 mg, Intravenou s, ONCE, 1 dose, On Wed05/22/25 at 1200, Routine, Is this medication approved by a Faculty level provider? Yes, retail team member approving Restricted medication : GENESIS MANZANO [facility] Insulin NPH-Regular Human Rec (NOVOLIN 70-30 FLEXPEN U-100) 100 unit/mL (70-30) injection 05-22 14:31: 57 05-22 00:00 :00 No Inject under the skin. [facility] famotidine (PEPCID AC) tablet 20 mg famotidine (PEPCID AC) tablet 20 mg 05-22 01:00: 00 Yes 20mg 20 mg, Oral, BID, First dose on Wed05/21/25 at 2000, Until Discontinu ed, Routine [facility] docusate (COLACE) capsule 100 mg docusate (COLACE) capsule 100 mg 05-22 01:00: 00 Yes 100mg 100 mg, Oral, BID, First dose on Wed05/21/25 at 2000, Until Discontinu ed, Routine [facility] Sliding Scale Insulin - Lispro (HumaLOG) 711656 3397-0 8-19 00:15: 00 Yes Subcutaneo us, TID MEALS+HS, First dose (after last modificati on) on Wed05/21/25 at 1915, Until Discontinu ed, Routine [facility] docusate 100 mg capsule 05-22 00:00: 00 06-06 04:59 :00 Yes [id number] 100mg Take 1 capsule by mouth in the morning for 14 days. [facility] glucagon HCL injection 1 mg 05-21 22:54: 26 Yes 1mg 1 mg, Intramuscu lar, PRN, Starting on Wed05/21/25 at 1754, Until Discontinu ed, NOEMI, Low blood sugar, Blood Glucose < or = 70 mg/dL and patient is NPO, unable to swallow or has mental changes. [facility] dextrose 50 % in water (D50W) injection 25 mL 05-21 22:54: 26 Yes 25mL 25 mL, Slow IV Push, PRN, Starting on Wed05/21/25 at 1754, Until Discontinu ed, NOEMI, Blood Glucose < or = 70 mg/dL and patient is NPO, unable to swallow or has mental status changes. [facility] HYDROmorpho ne (DILAUDID) injection 0.5 mg HYDROmorpho ne (DILAUDID) injection 0.5 mg 05-21 18:06: 12 05-23 18:05 :12 Yes .5mg 0.5 mg, Slow IV Push, Q4HPRN, Starting on Wed05/21/25 at 1306, Until Wed05/23/25 at 1305, Routine, Pain (scale 7-10), Is this medication approved by a Faculty level provider? Yes, retail team member approving Restricted medication : GENESIS MANZANO [facility] methocarbam oL (ROBAXIN) tablet 500 mg methocarbam oL (ROBAXIN) tablet 500 mg 05-21 17:00: 00 Yes 500mg 500 mg, Oral, Q6H, First dose on Wed05/21/25 at 1200, Until Discontinu ed, Routine [facility] acetaminoph en (TYLENOL) tablet 650 mg acetaminoph en (TYLENOL) tablet 650 mg 05-21 15:44: 48 Yes 650mg 650 mg, Oral, Q6HPRN, Starting on Wed05/21/25 at 1044, Until Discontinu ed, Routine, Pain (scale 1-3) [facility] bisacodyL (DULCOLAX) suppository 10 mg bisacodyL (DULCOLAX) suppository 10 mg 05-21 15:02: 47 Yes 10mg 10 mg, Rectal, QHSPRN, Starting on Wed05/21/25 at 1002, Until Discontinu ed, Routine, Constipati on [facility] NaCl 0.9% (NS) injection 5 mL 05-21 15:02: 47 Yes 5mL 5 mL, Slow IV Push, PRN - SEE INSTRUCTIO NS, Starting on Wed05/21/25 at 1002, Until Discontinu ed, 10 mL [facility] HYDROcodone -acetaminop hen (NORCO 5) 5-325 mg tablet 1 tablet 05-21 15:00: 00 05-21 15:27 :00 No 1{tbl} 1 tablet, Oral, ONCE, 1 dose, On Wed05/21/25 at 1000, Routine, PACU [facility] HYDROmorpho ne (DILAUDID) injection 0.2 mg 05-21 14:59: 39 05-21 16:02 :00 No .2mg 0.2 mg, Slow IV Push, Q5MIN PRN, 5 doses, Starting on Wed05/21/25 at 0959, Until Wed05/21/25 at 1102, Routine, Pain (scale 7-10), PACU, Is this medication approved by a Faculty level provider? Yes, retail team member approving Restricted medication : JONNA NUGENT [facility] FENTanyl (PF) (SUBLIMAZE) injection 25 mcg 05-21 14:59: 39 05-21 15:41 :00 No 25ug 25 mcg, Slow IV Push, Q5MIN PRN, 4 doses, Starting on Wed05/21/25 at 0959, Until Wed05/21/25 at 1041, Routine, Pain Scale 4-6, PACU [facility] methylPREDN ISolone acetate (DEPO-MEDRO L) injection 05-21 14:27: 00 05-21 15:06 :16 No PRN, Starting on Wed05/21/25 at 0927, Until Wed05/21/25 at 1006, Routine, Intra-op [facility] bupivacaine (preserv free) (SENSORCAIN E MPF) 0.25 % (2.5 mg/mL) 20 mL, BUPivacaine liposome (PF) (EXPAREL (PF)) 1.3 % (13.3 mg/mL) 266 mg 05-21 14:27: 00 05-21 15:06 :16 No PRN, Starting on Wed05/21/25 at 0927, Intra-op [facility] vancomycin (VANCOCIN) 1 g in sodium chloride 0.9 % irrigation 05-21 13:17: 00 05-21 15:06 :16 No PRN, Starting on Wed05/21/25 at 0817, Until Wed05/21/25 at 1006, 1,000 mL, Intra-op [facility] thrombin topical solution 05-21 13:14: 00 05-21 15:06 :16 No PRN, Starting on Wed05/21/25 at 0814, Until Wed05/21/25 at 1006, Routine, Intra-op [facility] lidocaine-e pinephrine (XYLOCAINE WITH EPINEPHRINE ) 0.5 %-1:200,000 injection 05-21 13:14: 00 05-21 15:06 :16 No PRN, Starting on Wed05/21/25 at 0814, Until Wed05/21/25 at 1006, Routine, Intra-op [facility] methylpredn isolone sod succ (PF) (SOLU-MEDRO L) injection 125 mg 05-13 18:30: 00 05-13 18:12 :00 No 125mg 125 mg, Intravenou s, ONCE, 1 dose, On Wed05/13/25 at 1330, 2 mL [facility] methylPREDN ISolone 4 mg tablets 05-13 00:00: 00 05-22 00:00 :00 No [id number] Take by mouth SEE-INSTRU CTIONS. follow package directions [facility] cloNIDine 0.3 mg tablet 04-30 10:03: 12 Yes .3mg Take 1 tablet by mouth. 2 tablets in the morning and 4 tablets in the evening [facility] tiZANidine 4 mg capsule 04-30 10:02: 16 Yes 4mg Take 1 capsule by mouth in the morning and 1 capsule at noon and 1 capsule in the evening. [facility] HYDROcodone -acetaminop hen 10-325 mg tablet 04-26 00:00: 00 Yes 1{tbl} Take 1 tablet by mouth in the morning and 1 tablet at noon and 1 tablet in the evening. [facility] lamoTRIgine 25 mg tablet 04-25 00:00: 00 Yes 50mg Take 2 tablets by mouth in the morning. increased it to 2 tabs of 25 mg po. Daily. [facility] mirtazapine 7.5 mg tablet 04-25 00:00: 00 Yes 7.5mg Take 1 tablet by mouth at bedtime. [facility] lamotrigine 25 mg tablet 04-25 00:00: [...] Ronen Prather clonidine HCl 0.3 mg tablet 04-17 00:00: 00 Yes mg Ronen Prather clonidine HCl 0.3 mg tablet 24 00:00: 00 Yes mg Ronen Prather telmisartan 40 mg tablet 03-13 00:00: 00 Yes 1mg Ronen Prather clonidine HCl 0.3 mg tablet 03-13 00:00: 00 Yes mg Ronen Prather tizanidine 4 mg tablet 03-13 00:00: 00 Yes mg Ronen Prather clonidine HCl 0.3 mg tablet 6-09 00:00: 00 Yes mg Ronen Prather amitriptyli ne 50 mg tablet 17 00:00: 00 Yes mg Ronen Prather prednisone 10 mg tablet 02-14 00:00: 00 Yes 1mg Ronen Prather clonidine HCl 0.3 mg tablet 02-14 00:00: 00 Yes 1mg Ronen Prather amitriptyli ne 50 mg tablet 02-14 00:00: 00 Yes 1mg Ronen Prather tizanidine 4 mg capsule 02-14 00:00: 00 Yes 1mg Ronen Prather insulin glargine 100 unit/mL injection 05-22 00:00: 00 05-22 00:00 :00 No 5U Inject 5 units under the skin in the morning. [facility] Vital Signs Vital Name Observation Time Observation Value Comments S ource Systolic blood pressure 2025-05-22 13:05:00 138 mm[Hg] [facility] Diastolic blood pressure 2025-05-22 13:05:00 90 mm[Hg] [facility] Heart rate 2025-05-22 13:05:00 79 /min [facility] Body temperature 2025-05-22 13:05:00 36.17 Lou [facility] Respiratory rate 2025-05-22 13:05:00 20 /min [facility] Oxygen saturation in Arterial blood by Pulse oximetry 2025-05-22 13:05:00 95 /min [facility] Body height 2025-05-21 17:34:00 182.9 cm [facility] Body weight 2025-05-21 17:34:00 109.77 kg [facility] BMI 2025-05-21 17:34:00 32.81 kg/m2 [facility] Systolic blood pressure 2025-05-21 15:15:00 133 mm[Hg] [facility] Diastolic blood pressure 2025-05-21 15:15:00 81 mm[Hg] [facility] Heart rate 2025-05-21 15:15:00 68 /min [facility] Respiratory rate 2025-05-21 15:15:00 20 /min [facility] Oxygen saturation in Arterial blood by Pulse oximetry 2025-05-21 15:15:00 97 /min [facility] Body temperature 2025-05-21 15:03:00 36.39 Lou [facility] Body height 2025-05-21 10:28:00 182.9 cm [facility] Body weight 2025-05-21 10:28:00 110 kg [facility] BMI 2025-05-21 10:28:00 32.81 kg/m2 [facility] Systolic blood pressure 2025-05-13 19:00:00 117 mm[Hg] [facility] Diastolic blood pressure 2025-05-13 19:00:00 72 mm[Hg] [facility] Heart rate 2025-05-13 19:00:00 74 /min [facility] Body temperature 2025-05-13 19:00:00 37 Lou [facility] Respiratory rate 2025-05-13 19:00:00 14 /min [facility] Oxygen saturation in Arterial blood by Pulse oximetry 2025-05-13 19:00:00 98 /min [facility] Body height 2025-05-13 17:10:00 182.9 cm [facility] Body weight 2025-05-13 17:10:00 108.863 kg [facility] BMI 2025-05-13 17:10:00 32.55 kg/m2 [facility] Systolic blood pressure 2025-05-11 13:40:00 124 mm[Hg] [facility] Diastolic blood pressure 2025-05-11 13:40:00 87 mm[Hg] [facility] Heart rate 2025-05-11 13:40:00 87 /min [facility] Body temperature 2025-05-11 13:40:00 35.94 Lou [facility] Body height 2025-05-11 13:40:00 182.9 cm [facility] Body weight 2025-05-11 13:40:00 108.047 kg [facility] BMI 2025-05-11 13:40:00 32.31 kg/m2 [facility] Oxygen saturation in Arterial blood by Pulse oximetry 2025-05-11 13:40:00 97 /min [facility] Systolic blood pressure 2025-05-02 14:00:00 121 mm[Hg] [facility] Diastolic blood pressure 2025-05-02 14:00:00 86 mm[Hg] [facility] Heart rate 2025-05-02 14:00:00 96 /min [facility] Body temperature 2025-05-02 14:00:00 36.11 Lou [facility] Respiratory rate 2025-05-02 14:00:00 18 /min [facility] Body height 2025-05-02 14:00:00 182.9 cm [facility] Body weight 2025-05-02 14:00:00 107.185 kg [facility] BMI 2025-05-02 14:00:00 32.05 kg/m2 [facility] Oxygen saturation in Arterial blood by Pulse oximetry 2025-05-02 14:00:00 98 /min [facility] Systolic blood pressure 2025-04-30 15:05:00 111 mm[Hg] [facility] Diastolic blood pressure 2025-04-30 15:05:00 76 mm[Hg] [facility] Heart rate 2025-04-30 15:05:00 85 /min [facility] Respiratory rate 2025-04-30 15:05:00 18 /min [facility] Body height 2025-04-30 15:05:00 182.9 cm [facility] Body weight 2025-04-30 15:05:00 107.593 kg [facility] BMI 2025-04-30 15:05:00 32.17 kg/m2 [facility] Oxygen saturation in Arterial blood by Pulse oximetry 2025-04-30 15:05:00 95 /min [facility] BP Systolic 2025-04-25 08:41:00 119 mm[Hg] Luis Prather BP Diastolic 2025-04-25 08:41:00 75 mm[Hg] Desmond ilan Prather Weight Measured 2025-04-25 08:41:00 238.60 pounds [...] Body Temperature 2025-03-13 11:03:00 98.20 degrees Ronen Prather Heart Rate 2025-03-13 11:03:00 106.00 /min Luis Prather Respiratory Rate 2025-03-13 11:03:00 Ronen Prather Body Temperature 2025-02-14 13:45:00 98.30 degrees Ronen Prather Heart Rate 2025-02-14 13:45:00 99.00 /min Stacy Prather Respiratory Rate 2025-02-14 13:45:00 Ronen Prather BP Systolic 2025-02-14 13:45:00 141 mm[Hg] Step hen Eyad Prather BP Diastolic 2025-02-14 13:45:00 87 mm[Hg] Desmond Prather Weight Measured 2025-02-14 13:45:00 220.00 pounds Ronen Prather Height Measured 2025-02-14 13:45:00 65.00 inches Ronen Prather Procedures Procedure Date / Time Performed Performing Clinician Source POCT GLUCOSE (AUTOMATED) 2025-05-22 12:33:00 Genesis Manzano [facility] POCT GLUCOSE (AUTOMATED) 2025-05-22 12:33:00 Genesis Manzano [facility] BASIC METABOLIC PANEL (NA, K, CL, CO2, GLUCOSE, BUN, CREATININE, CA) 2025-05-22 09:18:00 Cassi [facility] CBC WITHOUT DIFF 2025-05-22 09:18:00 [facility] GLYCOSYL[facility]EMOGLOBIN (A1C) 2025-05-22 09:18:00 Ladonna Stephens [facility] BASIC METABOLIC PANEL (NA, K, CL, CO2, GLUCOSE, BUN, CREATININE, CA) 2025-05-22 09:18:00 Cassi [facility] CBC WITHOUT DIFF 2025-05-22 09:18:00 Asad Ye [facility] GLYCOSYLATED HEMOGLOBIN (A1C) 2025-05-22 09:18:00 Ladonna Stephens [facility] POCT GLUCOSE (AUTOMATED) 2025-05-22 09:12:00 Genesis Manzano [facility] POCT GLUCOSE (AUTOMATED) 2025-05-22 09:12:00 Manzano, [facility] POCT GLUCOSE (AUTOMATED) 2025-05-22 06:15:00 Nick [facility] POCT GLUCOSE (AUTOMATED) 2025-05-22 06:15:00 Nick [facility] POCT GLUCOSE (AUTOMATED) 2025-05-21 23:06:00 Nick [facility] POCT GLUCOSE (AUTOMATED) 2025-05-21 23:06:00 Nick [facility] POCT GLUCOSE (AUTOMATED) 2025-05-21 15:04:00 Nick [facility] POCT GLUCOSE (AUTOMATED) 2025-05-21 15:04:00 Nick [facility] FL TIME OR (NON-REPORTABLE) 2025-05-21 14:33:44 Nick [facility] FL TIME OR (NON-REPORTABLE) 2025-05-21 14:33:44 Nick [facility] [id number] - [place] PR[place] FFD EX[facility] 2025-05-21 11:55:00 Nick [facility] [id number] - [place] PR[place] FFD EXC DISC REEXPL 1 [facility] LUMBAR 2025-05-21 11:55:00 Nick [facility] HB ABO GROUPING 2025-05-21 11:40:00 Nick [facility] HB ABO GROUPING 2025-05-21 11:40:00 Nick [facility] POCT GLUCOSE (AUTOMATED) 2025-05-21 10:50:00 Nick [facility] POCT GLUCOSE (AUTOMATED) 2025-05-21 10:50:00 Nick [facility] BASIC METABOLIC PANEL (NA, K, CL, CO2, GLUCOSE, BUN, CREATININE, CA) 2025-05-13 18:12:00 Jarret James [facility] CBC WITH DIFF 2025-05-13 18:12:00 Jarret James [facility] URIC ACID 2025-05-13 18:12:00 [facility]W RIGHT 2025-05-13 18:01:09 Jarret James [facility] XR LUMBAR SPINE 4 VW 2025-05-02 15:12:00 Emilia Lew [facility] Encounters Start Date/Time End Date/Time Encounter Type Admission Type Attending [facility] Care Department Encounter ID Source 2025-05-24 00:00:00 2025-05-24 14:29:33 Telephone Jamaal Britt [facility] [id number] 350.1.13.10 4.2.7.2.686 [id number] [facility] 2025-05-21 05:13:00 2025-05-22 12:00:00 Hospital Encounter R Genesis Manzano [facility] [id number] 350.1.13.10 4.2.7.2.686 [id number] [facility] 2025-05-21 06:55:00 2025-05-21 10:27:00 Surgery Genesis Manzano [facility] [id number] 350.1.13.10 4.2.7.2.686 [id number] [facility] 2025-05-16 08:54:14 2025-05-16 08:54:14 Outpatient SFA [facility] [id number] Ronen Eyad Crescencio 2025-05-13 12:13:00 2025-05-13 14:39:00 Emergency X JARRET JAMES JULIO [facility] ERT [id number] [facility] 2025-05-11 10:00:00 2025-05-11 10:15:00 [employer] Visit [facility] Silver Echevarria [facility] [id number] 350.1.13.10 4.2.7.2.686 [id number] [facility] 2025-05-11 09:00:00 2025-05-11 09:30:00 Office Visit Genesis Manzano Rudy P [facility] ([facility]) [id number] 350.1.13.10 4.2.7.2.686 [id number] [facility] 2025-05-02 09:33:35 2025-05-02 23:59:00 Hospital Encounter Emilia Lew [facility] ([facility]) [id number] 350.1.13.10 4.2.7.2.686 [id number] [facility] 2025-05-02 08:00:00 2025-05-02 09:27:09 Office Visit Emilia Lew [facility] ([facility]) [id number] 350.1.13.10 4.2.7.2.686 [id number] [facility] 2025-04-30 00:00:00 2025-04-30 16:05:29 Telephone Sagar Welch [facility] [id number] 350.1.13.10 4.2.7.2.686 [id number] [facility] 2025-04-30 13:46:16 2025-04-30 13:46:16 Outpatient SFA [facility] [id number] Ronen Prather 2025-04-30 09:40:00 2025-04-30 10:23:19 Office Visit Sagar Welch [facility] [id number] 350.1.13.10 4.2.7.2.686 [id number] [facility] 2025-04-25 09:36:13 2025-04-25 09:36:13 Outpatient SFA [facility] [id number] Ronen Prather 2025-04-24 14:08:22 2025-04-24 15:19:28 Outpatient Elective [facility] EOUT [id number] [id number] 2025-04-18 14:09:37 2025-04-18 14:09:37 Outpatient SFA [facility] [id number] Ronen Prather 2025-04-18 00:00:00 2025-04-18 00:00:00 Outpatient Visit [facility] [id number] Ronen Prather 2025-03-15 15:10:55 2025-03-15 15:10:55 Outpatient SFA [facility] [id number] Ronen Prather 2025-03-15 00:00:00 2025-03-15 00:00:00 Outpatient Visit [facility] [id number] Ronen Prather 2025-03-13 11:02:23 2025-03-13 11:02:23 Outpatient [facility] [id number] Roenn Prather 2025-03-13 00:00:00 2025-03-13 00:00:00 Outpatient Visit [facility] [id number] Ronen Prather 2025-02-23 16:24:01 2025-02-23 16:24:01 Outpatient [facility] [id number] Ronen Prather 2025-02-14 13:53:44 2025-02-14 13:53:44 Outpatient SFA [facility] [id number] Ronen Prather 2025-02-14 00:00:00 2025-02-14 00:00:00 Outpatient Visit [facility] [id number] Ronen Prather 2024-12-19 18:44:00 2024-12-20 01:31:00 Emergency X YAEL SANTAMARIA [facility] [id number] [facility] Results Test Description Test Time Test Comments Results Result Co mments Source [facility] GLUCOSE (AUTOMATED)2025-05-22 12:34:10* Test Item Value Reference Range Interpretation Comme nts POCT GLU (test code = 5641245255) 360 mg/dL 70-110 H Lab Interpretation (test cod e = 65065-7) Abnormal [facility] GLUCOSE (AUTOMATED)2025-05-22 09:13:15* Test Item Value Reference Range Interpretation Comme nts POCT GLU (test code = 3431154719) 361 mg/dL 70-110 H Lab Interpretation (test cod e = 09270-0) Abnormal [facility] GLUCOSE (AUTOMATED)2025-05-22 09:13:15* Test Item Value Reference Range Interpretation Comme nts POCT GLU (test code = 7366220831) 361 mg/dL 70-110 H Lab Interpretation (test cod e = 51422-7) Abnormal [facility] GLUCOSE (AUTOMATED)2025-05-22 06:16:10* Test Item Value Reference Range Interpretation Comme nts POCT GLU (test code = [id number]) 345 mg/dL 70-110 H Lab Interpretation (test cod e = 93897-4) Abnormal [facility] GLUCOSE (AUTOMATED)2025-05-22 06:16:10* Test Item Value Reference Range Interpretation Comme nts POCT GLU (test code = 5395642325) 345 mg/dL 70-110 H Lab Interpretation (test cod e = 13720-6) Abnormal [facility] GLUCOSE (AUTOMATED)2025-05-21 23:07:38* Test Item Value Reference Range Interpretation Comme nts POCT GLU (test code = 7812789945) 411 mg/dL 70-110 H Lab Interpretation (test cod e = 93137-2) Abnormal [facility] GLUCOSE (AUTOMATED)2025-05-21 23:07:38* Test Item Value Reference Range Interpretation Comme nts POCT GLU (test code = 3494984157) 411 mg/dL 70-110 H Lab Interpretation (test cod e = 47612-6) Abnormal [facility] GLUCOSE (AUTOMATED)2025-05-21 15:05:42* Test Item Value Reference Range Interpretation Comme nts POCT GLU (test code = 9248803519) 195 mg/dL 70-110 H Lab Interpretation (test cod e = 15724-6) Abnormal [facility] GLUCOSE (AUTOMATED)2025-05-21 15:05:42* Test Item Value Reference Range Interpretation Comme nts POCT GLU (test code = 5183252079) 195 mg/dL 70-110 H Lab Interpretation (test cod e = 26137-8) Abnormal [facility] Time OR (Non-Reportable)2025-05-21 14:34:14 These images do not require a Radiology diagnostic report.[facility] Time OR (Non-Reportable)2025-05-21 14:34:14These images do not require a Radiology diagnostic report.[facility] GLUCOSE (AUTOMATED)2025-05-21 10:54:36* Test Item Value Reference Range Interpretation Comme nts POCT GLU (test code = 2669473631) 227 mg/dL 70-110 H Lab Interpretation (test cod e = 72519-9) Abnormal [facility] GLUCOSE (AUTOMATED)2025-05-21 10:54:36* Test Item Value Reference Range Interpretation Comme nts POCT GLU (test code = 0181139851) 227 mg/dL 70-110 H Lab Interpretation (test cod e = 39023-3) [facility] [id number] 19:00:45XR HAND 3+ VW RIGHT Indication: hand pain ? ?Pain Comparison: None RL: 58819 Ordering Clinician: JARRET JAMES Technique: Frontal, oblique and lateral views are submitted forinterpretation. TechnicalQuality: Adequate Findings:No acute fractures or dislocations. ? No erosions or periosteal reaction. No focal soft tissue abnormalities.[facility] Metabolic Panel (NA, K, CL, CO2, GLUCOSE, BUN, CREATININE, CA)2025-05-13 18:49:21* Test Item Value Reference Range Interpretation Comme nts NA (test code = 8811768551) 137 mmol/L 135-145 K (test code = 9905158019) 4.5 mmol/L 3.5-5.0 CL (test code = 9301634266) 105 mmol/L 98-108 CO2 TOTAL (test code = 7399777921) 24 mmol/L 23-31 AGAP (test code = 1630964962) 8 2-16 BUN (test code = 0092456027) 10 mg/dL 7-23 GLUCOSE (test code = 8683999653) 114 mg/dL 70-110 H CREATININE (test code = 2160-0) 0.86 mg/dL 0.60-1.25 CALCIUM (test code = 6140362026) 9 mg/dL 8.6-10.6 eGFR (test code = 48136-9) 108.8 mL/min/1.73m2 CKD-EPI eGFR (2020). Assuming creatinine has been stable day-to-day for at least three months, the eGFR indicates Category G1 (>= 90 mL/min/1.73 m2) Lab Interpretation (test code = 64377-1) [facility] [id number] 18:49:21* Test Item Value Reference Range Interpretation Comme nts URIC ACID (test code = 0751123939) 7.4 mg/dL 3.6-8.0 Lab Interpretation (test cod e = 55935-7) Normal [facility] with [id number] 18:37:59* Test Item Value Reference Range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 numbness, failure of symptoms to improve, worsening of symptoms, need for additional surgery, or injury to spinal nerves, increased risk of leak of spinal fluid, risk of disk re-herniation, the potential need for lumbar interbody fusion. The patient understands these risks as explained and wishes to proceed with surgery. PROCEDURE: On day of surgery the patient was taken to the operating room and placed under general endotracheal anesthesia. Additional IVs and lines were placed as needed. The patient was carefully positioned prone on a Karsten frame. Arms were extended above the head and neck. All pressure points were padded. Ancef was given for antibiotic prophylaxis. Surgical pause performed indicating the correct patient and procedure. The patient was prepped and draped in the usual sterile fashion. Lidocaine with epinephrine was injected in the surgical site and incision was carried out with a 10-blade knife. Dissection was carried out with Bovie electrocautery exposing the previous right-side hemilaminectomy site and the remaining portions of the L5 lamina, the L5-S1 facet joint and the S1 lamina. We carefully dissected scar tissue away from the bony edges. We then performed an expansion of the hemilaminectomy using a combination of high-speed bur, curettes, and rongeurs. I identified the traversing S1 nerve root and traced it along its origin. There was a significant amount of scar tissue stuck to the axilla. I was able to free all the overlying tissue a top the nerve and fully decompressed this way. I was also able to enter the disk space and remove the re-herniated fragments of disk. However, the patient had a significant osteophyte which could not fully be removed safely. I palpated cephalad and caudal. I could identify the S1 nerve root from its origin to its exit out the S1 foramen. Once verifying decompression, the wound was copiously irrigated. Hemostasis was achieved. Gelfoam thrombin was placed with Depo-Medrol and the incision was then closed in layered fashion. Following closure, the patient was returned to the supine position. He was extubated and taken to postanesthesia recovery unit and admitted for overnight observation. Complications: None. I immediately updated the patient's family regarding the outcome of the surgical procedure. I was present in the operating room for the entire surgery. I was scrubbed for all the critical portions including exposure, level identification, revision hemilaminectomy, revision diskectomy, deep tissue closure. ESTIMATED BLOOD LOSS: Less than 20 cc. Genesis Manzano MD INSTRUCTOR [place]/MEDQ J#: [id number] [facility] 2025-05-13 14:30:00 Pt given printed and verbal discharge instructions regarding pain of right hand. Prescriptions provided. Pt verbalized understanding of instructions, pt awake alert oriented, resp reg unlabored, skin w/d, color appropriate for race, moves all ext well, pt encouraged to follow up with pcp. Advised to seek medical attention for new/prolonged/worsening of symptoms. No adverse reaction to meds given in ER noted upon discharge. PIV d'cd, dressing to site, catheter in tact. Awake, alert oriented, resp reg unlabored, skin w/d, pt leaving amb with steady gait, in no apparent distress. Renate Mendosa RN [facility] [place] 2025-05-13 12:06:34 Summary: Triage CC: right hand pain patient hand a couple of days ago stiff, the pain starts at the hand and with little pressure it causes pain, with movement it is sharp pain, pin and needles with movement as well, patient also has pain along the top side of the forearm PMHx: see list PSH:see list MEDS:see list LMP: na Tetanus: UTD Awake, alert, oriented, resp reg unlabored, skin warm, color appropriate for race, moves all ext without difficulty, amb with assistance Appears in no distress [facility] [place] 2025-05-11 10:00:00 Images from the original note were not included. Venipuncture collection performed by clean technique on the left anticubitus. Total of 1 attempts were made. Slight pressure and a bandage/dressing were applied to the site(s). The patient experienced no complications. The following specimens were processed according to instructions and sent to [facility] laboratories [place] [facility]ST RED [...] Panel URINE URINE CULTURE APTIMA URINE STOOL [facility] [place] 2025-04-30 16:04:49 Records received from [facility]. Placed in Dr. Welch's folder Maria T Knight RN [facility]2025-06-12 00:00:00 [facility]2025-06-10 00:00:00 [facility]2025-05-14 00:00:00 [facility]
[2025-05-29] MEDS ORDERED: FENTANYL CITR 100 MCG/2 ML ONE (18:37)
[2025-05-29] MEDS ORDERED: NA CHLORIDE 0.9% 1,000 ML ONE (18:37)
[2025-05-29] MEDS ORDERED: ONDANSETRON 4 MG/2 ML VIAL ONE (18:37)
[2025-05-29] MEDS ORDERED: HYDROMORPHONE HCL 1 MG/ML INJ ONE ×2 (18:58→20:42)
[2025-05-29 19:06] LABS: Absolute Lymphocytes (CBC) 1.7 K/uL (0.7-4.9); Hematocrit 42.3 % (39.6-49.0); Hemoglobin 14.3 g/dL (13.6-17.9); MCH 30.7 pg (27.0-35.0); MCHC 33.8 g/dL (32.0-36.0); MCV 90.8 fL (80-100); MPV 10.2 fL (7.6-11.3); Nucleated RBC Absolute Count 0.0 (0-0); Nucleated Red Blood Cells % 0.0 % (0-0); RBC Red Blood Cell Count 4.66 M/uL (4.33-5.43); White Blood Count 9.80 thou/uL (4.3-10.9)
[2025-05-29 19:29] LABS: ALT/SGPT 115.0 U/L (16-61); Albumin 3.3 g/dL (3.4-5.0); Albumin/Globulin Ratio 0.9 (1.1-1.8); Alkaline Phosphatase 106.0 U/L (45-117); Anion Gap 10.2 mEq/L (5.0-15.0); BUN Blood Urea Nitrogen 12.0 mg/dL (7-18); Bilirubin Indirect, Calculated 0.4 mg/dL (0.2-0.8); Globulin 3.8 g/dL (2.3-3.5); Glucose Level 161.0 mg/dL (74-106); Troponin High Sensitivity 21.7 pg/mL (<58.9)
[2025-05-29 19:30] LABS: AST/SGOT 80.0 U/L (15-37); Magnesium 1.5 mg/dL (1.6-2.4); Potassium 4.2 mEq/L (3.5-5.1)
--- NOTE | 2025-05-29 20:12 | RAD REPORT ---
EXAM: CT brain without contrast HISTORY: Headache COMPARISON: None TECHNIQUE: Multiple contiguous axial images were obtained and a CT of the brain without contrast.. Sagittal and coronal reconstruction performed. Automated exposure control, adjustment of the mA and/or kV according to patient size, and/or iterative reconstruction. Unless otherwise specified, incidental f indings do not require dedicated imaging follow-up FINDINGS: An intracranial bleed is not seen Ventricles are normal caliber No extra-axial fluid collection noted No significant hypodensity within the brain Fluid in left maxillary sinus. Mild fluid and ethmoid sinuses. IMPRESSION: No acute intracranial abnormality noted. Left maxillary and ethmoid sinusitis If the patient continues to have symptoms to suggest an acute intracranial abnormality then MRI of th e brain would be recommended.
--- NOTE | 2025-05-29 20:16 | RAD REPORT ---
EXAMINATION: CT ABDOMEN AND PELVIS WITH CONTRAST CLINICAL INDICATION: Abdominal pain TECHNIQUE: CT abdomen and pelvis was performed, after the administration of 100 cc Isovue-300.. Sagit dimas and coronal reconstructions were obtained. One or more of the following dose reduction techniques were used: Automated exposure control, adjustment of the mA and kV according to patient si ze, and iterative reconstruction. Unless otherwise specified, incidental findings do not require dedicated imaging follow-up. [id number]. Oral contrast was not given which limits evaluation of bowel and appendix. COMPARISON: .February 2025 FINDINGS: Marked fatty liver. Cholecystectomy. Liver and spleen borderline enlarged. Pancreas and adrenals unremarkable. Small bilateral renal calculi. No hydronephrosis. Small bilateral inguinal hernias containing fat. No evidence of diverticulitis. Neurostimulator device in place. Umbilical hernia repair Normal [id number] : IMPRESSION: Marked fatty liver. Borderline hepatosplenomegaly Nonobstructing bilateral renal calculi
[2025-05-29] MEDS ORDERED: MAGNESIUM SULFATE 1 gm IVPB 1 GM/100 ML BAG IV ONE (20:29)
--- NOTE | 2025-05-29 20:30 | EDPHYS ---
Physician Documentation [facility] Name: Kaden Turcios Age: 44 yrs Sex: Male : 1980 Arrival Date: 05/29/2025 Time: 18:20 Bed 6 Private MD: ED Physician Talha Ernst HPI: 05/29 22:34 This 44 yrs old Male presents to ER via EMS with complaints of headache. kb 22:34 Pt is a 44 year old male who presents for headache that started Wednesday. States he had kb surgery on L5/S1 on 05/21/25 at [facility] in [place]. States he was vomiting on Wednesday and felt a pop in his back. Has had a headache since then that is worse when he stands up. Denies back pain. . Historical: - Allergies: 18:28 Ibuprofen; bp 18:28 Morphine; bp 18:28 Toradol; bp - PMHx: 18:28 Chronic pain; diabetes mellitus; Gout; Hernia; herniated discs; Hypertensive disorder; bp - PSHx: 18:28 B sciatic nerve block; back; Cholecystectomy; hernia repair; knee; pain pump -- bp dilaudid; right knee; - Immunization history:: Adult Immunizations up to date. - Infectious Disease History:: Denies. - Social history:: Smoking status: unknown. ROS: 22:31 Constitutional: As per HPI kb Exam: 21:41 Head/Face: Normocephalic, atraumatic. ENT: Moist Mucous membranes Cardiovascular: kb Regular rate Respiratory: Respirations even and unlabored. No increased work of breathing. Talking in full sentences Skin: Warm, dry with normal turgor. Normal color. MS/ Extremity: Pulses equal, no cyanosis. Neurovascular intact. Full, normal range of motion. Neuro: Awake and alert, GCS 15, oriented to person, place, time, and situation. 21:41 Constitutional: The patient appears alert, awake, uncomfortable, 21:41 ECG was reviewed by the Attending Physician. Vital Signs: 18:27 BP 192 / 105; Pulse 105; Resp 20; Temp 97.7; Pulse Ox 99% ; Weight 115.67 kg; Height 6 ty ft. 0 in. ; Pain 10/10; 19:07 BP 155 / 101; Pulse 92; Resp 19; Pulse Ox 98% on R/A; me1 20:00 BP 157 / 89; Pulse 65; Resp 18; Pulse Ox 98% on R/A; kb4 20:30 BP 171 / 92; Pulse 60; Resp 18; Pulse Ox 98% on R/A; kb4 22:00 BP 139 / 79; Pulse 83; Resp 18; Pulse Ox 99% on R/A; kb4 18:27 Body Mass Index 34.58 (115.67 kg, 182.88 cm) ty 18:27 Pain Scale: Adult ty Arden Coma Score: 22:31 Eye Response: spontaneous(4). Motor Response: obeys commands(6). Verbal Response: kb oriented(5). Total: 15. MDM: 18:29 Medical Screening Exam initiated kb 22:31 Data reviewed: vital signs, nurses notes. Management of patient was discussed with the kb following: Dr Ernst, recommended CT head and abd/pelvis due to headache and recent surgery. Recommends discharge to follow up if negative for acute findings. . Historians other than the Patient: Spouse/Significant Other: . Counseling: I had a detailed discussion with the patient and/or guardian regarding the historical points, exam findings, and any diagnostic results supporting the discharge/admit diagnosis, lab results, radiology results, the need for outpatient follow up, a family practitioner, to return to the emergency department if symptoms worsen or persist or if there are any questions or concerns that arise at home. ED course: Pt was very upset upon discharge due to blood pressure being "stroke level" and not being treated. Blood pressure improved after pain treated and was 139/79 upon discharge. Pt ambulated out of ED via steady gait. Pt has follow up with pain management tomorrow. Educated on need for follow up with his surgeon at [facility]. . 05/29 18:30 Order name: Basic Metabolic Panel; Complete Time: 19:35 kb 05/29 18:30 Order name: CBC with Diff; Complete Time: 19:09 kb 05/29 18:30 Order name: LFT's; Complete Time: 19:35 kb 05/29 18:30 Order name: Magnesium; Complete Time: 19:35 kb 05/29 18:30 Order name: Troponin HS; Complete Time: 19:35 kb 05/29 18:30 Order name: XRAY Chest (1 view); Complete Time: 21:02 kb 05/29 18:30 Order name: CT Head Brain wo Cont; Complete Time: 20:15 kb 05/29 18:38 Order name: CT Abd/Pelvis - IV Contrast Only; Complete Time: 20:21 kb 05/29 18:30 Order name: Cardiac monitoring; Complete Time: 20:26 kb 05/29 18:30 Order name: EKG - Nurse/Tech; Complete Time: 20:26 kb 05/29 18:30 Order name: IV Saline Lock; Complete Time: 20:13 kb 05/29 18:30 Order name: Labs collected and sent; Complete Time: 20:13 kb 05/29 18:30 Order name: O2 Per Protocol; Complete Time: 20:13 kb 05/29 18:30 Order name: O2 Sat Monitoring; Complete Time: 20:13 kb EC:41 Rate is 82 beats/min. Rhythm is regular. QRS [place] is Normal. ND interval is normal at kb 146 msec. QRS interval is normal at 80 msec. QT interval is normal at 443 msec. Administered Medications: 18:56 Drug: Ondansetron IVP 4 mg IVP once; over 2 minutes Route: IVP; Site: left forearm; me1 20:35 Follow up: Response: No adverse reaction; Nausea is decreased al5 18:56 Drug: fentaNYL (PF) IVP 50 mcg IVP once Route: IVP; Site: left forearm; me1 20:35 Follow up: Response: No adverse reaction; Pain is decreased al5 18:56 Drug: NS 0.9% IV 1000 ml IV at 1000 ml once; to be given as a bolus over 60 minutes me1 Route: IV; Rate: 1000 ml; Site: left forearm; 20:36 Follow up: IV Status: Completed infusion; IV Intake: 1000ml al5 19:09 Drug: HYDROmorphone IVP 1 mg IVP once Route: IVP; Site: right antecubital; me1 20:34 Follow up: Response: No adverse reaction; Pain is unchanged, physician notified al5 20:34 Drug: Magnesium Sulfate IVPB 1 grams IVPB once over 1 hrs Route: IVPB; Infused Over: 1 al5 hrs; Site: right forearm; 20:54 Follow up: Response: No adverse reaction kb4 20:48 Drug: Amoxicillin-Clavulanate PO 875 mg PO once Route: PO; al5 20:54 Follow up: Response: No adverse reaction kb4 20:48 Drug: HYDROmorphone IVP 1 mg IVP once Route: IVP; Site: right forearm; al5 20:54 Follow up: Response: No adverse reaction kb4 21:41 Drug: Promethazine IM 25 mg IM once Route: IM; Site: right deltoid; lg3 22:05 Follow up: Response: No adverse reaction kb4 Disposition Summary: 05/29/25 20:29 Discharge Ordered Notes: Location: Home kb Condition: Stable kb Diagnosis - Headache kb - Acute sinusitis, unspecified kb Followup: kb - With: Emergency Department - When: As needed - Reason: Worsening of condition Followup: kb - With: Private Physician - When: 2 - 3 days - Reason: Recheck today's complaints, Continuance of care, Re-evaluation by your physician Discharge Instructions: - Discharge Summary Sheet kb - Sinusitis, Adult, [id number] kb - General Headache Without Cause, [id number] kb Forms: - Medication Reconciliation Form kb - Antibiotic Education kb - Prescription Opioid Use kb - Patient Portal Instructions kb - Leadership Thank You Letter kb Prescriptions: - Augmentin 875-125 mg Oral Tablet - take 1 tablet ORAL route every 12 hours for 10 days; 20 tablet; Refills: 0, kb Product Selection Permitted Signatures: Dispatcher [employer] EDMS Genesis Desir FNP-C FNP-Jack Mccrary, RN RN Kim Daley RN RN lg3 Melissa Hadley RN RN [id number] Kathy Marmolejo RN RN me1 Jazmín Partida RN RN al5 Yessi Blake RN kb4 Corrections: (The following items were deleted from the chart) 18:30 18:30 BASIC METABOLIC PANEL+C.LAB.BRZ ordered. EDMS EDMS 18:30 18:30 CBC+H.LAB.BRZ ordered. EDMS EDMS 18:30 18:30 HEPATIC FUNCTION+C.LAB.BRZ ordered. EDMS EDMS 18:30 18:30 MAGNESIUM+C.LAB.BRZ ordered. EDMS EDMS 18:30 18:30 Troponin High Sensitivity+C.LAB.BRZ ordered. EDMS EDMS 18:30 18:30 Chest Single View+RAD.RAD.BRZ ordered. EDMS EDMS 18:31 18:30 Head Brain Wo Cont+CT.RAD.BRZ ordered. EDMS EDMS 22:31 21:41 Head/Face: Normocephalic, atraumatic. ENT: Moist Mucous membranes Cardiovascular: kb Regular rate Respiratory: Respirations even and unlabored. No increased work of breathing. Talking in full sentences Abdomen/GI: Soft, non-tender. No distention Back: No spinal tenderness. No costovertebral tenderness. Full range of motion. Skin: Warm, dry with normal turgor. Normal color. MS/ Extremity: Pulses equal, no cyanosis. Neurovascular intact. Full, normal range of motion. Neuro: Awake and alert, GCS 15, oriented to person, place, time, and situation. kb
--- NOTE | 2025-05-29 20:30 | ER ---
Nurse's Notes [facility] Name: Kaedn Turcios Age: 44 yrs Sex: Male : 1980 Arrival Date: 05/29/2025 Time: 18:20 Bed 6 Private MD: Diagnosis: Headache;Acute sinusitis, unspecified Presentation: 05/29 18:27 Chief complaint: EMS states: BACK SURGERY WEDNESDAY, NOW WITH WEAVER. Coronavirus screen: At bp this time, the client does not indicate any symptoms associated with coronavirus-19. Ebola Screen: No symptoms or risks identified at this time. Initial Sepsis Screen: Does the patient meet any 2 criteria? No. Patient's initial sepsis screen is negative. Does the patient have a suspected source of infection? No. Patient's initial sepsis screen is negative. Risk Assessment: Do you want to hurt yourself or someone else? Patient reports no desire to harm self or others. Onset of symptoms is unknown. Care prior to arrival: Glucose check: 121. 18:27 Method Of Arrival: EMS: [facility] bp 18:27 Acuity: JOHN 3 bp Triage Assessment: 18:28 General: Appears in no apparent distress. uncomfortable, Behavior is cooperative, bp appropriate for age, anxious. Pain: Complains of pain in head. EENT: No deficits noted. Neuro: Level of Consciousness is awake, alert, obeys commands, Oriented to Appropriate for age. Cardiovascular: Rhythm is sinus tachycardia. Respiratory: No deficits noted. GI: No signs and/or symptoms were reported involving the gastrointestinal system. : No signs and/or symptoms were reported regarding the genitourinary system. Derm: No deficits noted. Musculoskeletal: No deficits noted. Historical: - Allergies: 18:28 Ibuprofen; bp 18:28 Morphine; bp 18:28 Toradol; bp - PMHx: 18:28 Chronic pain; diabetes mellitus; Gout; Hernia; herniated discs; Hypertensive disorder; bp - PSHx: 18:28 B sciatic nerve block; back; Cholecystectomy; hernia repair; knee; pain pump -- bp dilaudid; right knee; - Immunization history:: Adult Immunizations up to date. - Infectious Disease History:: Denies. - Social history:: Smoking status: unknown. Screenin:40 [facility] ED Fall Risk Assessment (Adult) History of falling in the last 3 months, me1 including since admission No falls in past 3 months (0 pts) Confusion or Disorientation No (0 pts) Intoxicated or Sedated No (0 pts) Impaired Gait No (0 pts) Mobility Assist Device Used No (0 pt) Altered Elimination No (0 pt) Score/Fall Risk Level 0 - 2 = Low Risk Maintained a safe environment, Provided non-skid footwear, Hourly rounding (assess needs \T\ fall precautionary measures) done. Abuse screen: Denies threats or abuse. Nutritional screening: No deficits noted. Tuberculosis screening: No symptoms or risk factors identified. Assessment: 18:40 General: Appears uncomfortable, well groomed, well developed, well nourished, Behavior me1 is calm, cooperative, appropriate for age. Pain: Complains of pain in left sternocleidomastoid and left arm and head Pain currently is 10 out of 10 on a pain scale. Quality of pain is described as burning, sharp, stinging, Pain began gradually, Is continuous. Neuro: Level of Consciousness is awake, alert, obeys commands, Oriented to person, place, time, situation, Appropriate for age. Neuro: Reports headache in left. Cardiovascular: Patient's skin is warm and dry. Respiratory: Airway is patent Respiratory effort is even, unlabored, Respiratory pattern is regular, symmetrical. GI: No signs and/or symptoms were reported involving the gastrointestinal system. : No signs and/or symptoms were reported regarding the genitourinary system. EENT: No signs and/or symptoms were reported regarding the EENT system. Derm: Skin is intact, is healthy with good turgor, Skin is pink, warm \T\ dry. Musculoskeletal: Circulation, motion, and sensation intact. Range of motion: intact in all extremities. 20:04 General: Appears in no apparent distress. uncomfortable, Behavior is calm, cooperative. al5 Pain: Complains of pain in left sternocleidomastoid and left arm and head Pain currently is 10 out of 10 on a pain scale. Neuro: Level of Consciousness is awake, alert, obeys commands, Oriented to person, place, time, situation. Cardiovascular: Capillary refill < 3 seconds Patient's skin is warm and dry. Rhythm is sinus rhythm. Respiratory: Airway is patent Respiratory effort is even, unlabored, Respiratory pattern is regular, symmetrical. GI: No signs and/or symptoms were reported involving the gastrointestinal system. : No signs and/or symptoms were reported regarding the genitourinary system. EENT: No signs and/or symptoms were reported regarding the EENT system. Derm: Skin is intact, is healthy with good turgor, Skin is pink, warm \T\ dry. normal. Musculoskeletal: Circulation, motion, and sensation intact. Range of motion: intact in all extremities. 20:34 Reassessment: discharge pending magnesium infusion completion. al5 21:36 GI: Pt is actively vomiting bile, clear fluid, undigested food. lg3 22:02 Reassessment: OBSERVED FOR 15M AFTER PROMETHAZINE IM - NO ADVERSE REACTIONS. kb4 Vital Signs: 18:27 BP 192 / 105; Pulse 105; Resp 20; Temp 97.7; Pulse Ox 99% ; Weight 115.67 kg; Height 6 ty ft. 0 in. ; Pain 10/10; 19:07 BP 155 / 101; Pulse 92; Resp 19; Pulse Ox 98% on R/A; me1 20:00 BP 157 / 89; Pulse 65; Resp 18; Pulse Ox 98% on R/A; kb4 20:30 BP 171 / 92; Pulse 60; Resp 18; Pulse Ox 98% on R/A; kb4 22:00 BP 139 / 79; Pulse 83; Resp 18; Pulse Ox 99% on R/A; kb4 18:27 Body Mass Index 34.58 (115.67 kg, 182.88 cm) ty 18:27 Pain Scale: Adult ty Lottie Coma Score: 22:31 Eye Response: spontaneous(4). Motor Response: obeys commands(6). Verbal Response: kb oriented(5). Total: 15. ED Course: 18:27 Patient arrived in ED. ty 18:27 Jack Garcia, RN is Primary Nurse. bp 18:28 Triage completed. bp 18:28 Arm band placed on. bp 18:29 Genesis Desir FNP-C is PHCP. kb 18:29 Talha Ernst MD is Attending Physician. kb 18:40 Patient has correct armband on for positive identification. Bed in low position. Call me1 light in reach. Side rails up X2. Provided Education on: POC. Verbalized understanding.. Client placed on continuous cardiac and pulse oximetry monitoring. NIBP monitoring applied. Pulse ox on. NIBP on. 18:40 No provider procedures requiring assistance completed. me1 18:58 Initial lab(s) drawn, by ED staff, sent to lab. Inserted saline lock: 18 gauge in left bp forearm, using aseptic technique. Blood collected. Flushed with 10 mL NS. 19:08 XRAY Chest (1 view) In Process Unspecified. EDMS 19:09 Inserted saline lock: 22 gauge in right antecubital area, using aseptic technique. me1 20:06 CT Head Brain wo Cont In Process Unspecified. EDMS 20:07 CT Abd/Pelvis - IV Contrast Only In Process Unspecified. EDMS 22:12 IV discontinued, intact, bleeding controlled, No redness/swelling at site. Pressure kb4 dressing applied. Administered Medications: 18:56 Drug: Ondansetron IVP 4 mg IVP once; over 2 minutes Route: IVP; Site: left forearm; me1 20:35 Follow up: Response: No adverse reaction; Nausea is decreased al5 18:56 Drug: fentaNYL (PF) IVP 50 mcg IVP once Route: IVP; Site: left forearm; me1 20:35 Follow up: Response: No adverse reaction; Pain is decreased al5 18:56 Drug: NS 0.9% IV 1000 ml IV at 1000 ml once; to be given as a bolus over 60 minutes me1 Route: IV; Rate: 1000 ml; Site: left forearm; 20:36 Follow up: IV Status: Completed infusion; IV Intake: 1000ml al5 19:09 Drug: HYDROmorphone IVP 1 mg IVP once Route: IVP; Site: right antecubital; me1 20:34 Follow up: Response: No adverse reaction; Pain is unchanged, physician notified al5 20:34 Drug: Magnesium Sulfate IVPB 1 grams IVPB once over 1 hrs Route: IVPB; Infused Over: 1 al5 hrs; Site: right forearm; 20:54 Follow up: Response: No adverse reaction kb4 20:48 Drug: Amoxicillin-Clavulanate PO 875 mg PO once Route: PO; al5 20:54 Follow up: Response: No adverse reaction kb4 20:48 Drug: HYDROmorphone IVP 1 mg IVP once Route: IVP; Site: right forearm; al5 20:54 Follow up: Response: No adverse reaction kb4 21:41 Drug: Promethazine IM 25 mg IM once Route: IM; Site: right deltoid; lg3 22:05 Follow up: Response: No adverse reaction kb4 Medication: 18:40 VIS not applicable for this client. me1 Intake: 20:36 IV: 1000ml; Total: 1000ml. al5 Outcome: 20:29 Discharge ordered by . kb 22:11 Discharged to home ambulatory, with family, kb4 22:11 Condition: stable 22:11 Discharge instructions given to patient, family, Instructed on discharge instructions, follow up and referral plans. medication usage, Demonstrated understanding of instructions, follow-up care, medications, Prescriptions given X 1, 22:12 Patient left the ED. kb4 Signatures: Dispatcher [employer] EDMS Genesis Desir, PAYROLL LEAD-C PAYROLL LEAD-CkJack Hickey, RN RN bp Kim Mancera RN RN lg3 Kathy Marmolejo RN RN me1 Umesh Talley Amanda, RN RN al5 Yessi Blake RN RN kb4
[2025-05-29] MEDS ORDERED: AMOX/K CLAV 875 MG TAB ONE (20:42)
--- NOTE | 2025-05-29 20:56 | RAD REPORT ---
Procedure: Chest Single View HISTORY: Chest pain COMPARISON: January 2025 FINDINGS: The lungs appear clear of acute infiltrate. No significant pleural effusion noted. The heart is mildly enlarged. IMPRESSION: No acute abnormality is displayed.
[2025-05-29] MEDS ORDERED: PROMETHAZINE INJ 25 MG/ML AMP ONE (21:34)
[2025-05-30 03:33] VITALS: TEMP 97.7
[2025-05-30 03:38] VITALS: BP 139/79; O2SAT 99
== END 2025-05-29 22:12 | disposition home or self-care (01) ==
LOC: ER 18:20
DX: J01.90 Acute sinusitis, unspecified (principal)
CPT/HCPCS: 85025; 80048; 36415; 83735; 80076; 84484; 70450; 74177; 71045; Q9967; J2550; J3475; J3010; J1171 ×2; J2405; J7030; 93005; 96372; 99285